=== PATIENT | female | born 1935 | race Caucasian/White ===

== ENCOUNTER 2022-05-26 07:44 | Emergency (ER) | payer MEDICARE, SELFPAY ==
[2022-05-26 07:51] VITALS: BP 185/88; PULSE 100; RESP 16; TEMP 36.7; O2SAT 99; BMI 16.9
--- NOTE | 2022-05-26 08:06 | ED.BACK ---
HPI - Back Pain/Injury General Chief Complaint: Back Pain/Injury Stated Complaint: back pain Time Seen by Provider: 05/26/22 08:01 Source: patient Mode of arrival: ambulatory Limitations: no limitations History of Present Illness HPI Narrative: 86 yo female Presents to the ER for evaluation of low back pain that started 4 days ago. She states she cannot recall what she was doing when it started, she woke up with the pain. It is located mostly in her left lower back that radiated across to the right when she moves around. It is worse with movement. It is improved with lying still. She denies any radiation of the pain aside from across the lower back. She denies any bowel or bladder incontinence. She denies any focal neural deficits or weakness in her legs. No abdominal pain. She took Tylenol at 07:00 today and has significant improvement in the pain. MD elicited complaint: back pain Onset (ago): day(s) (4) Timing: constant Severity: moderate Pain scale (0-10): 7 Similar Symptoms Previously: No Quality: aching and spasming Location: right lower back and left lower back Radiation: none Exacerbating factors: movement Relieving factors: immobilization and supine Context: unknown Associated symptoms: denies other symptoms Treatments prior to arrival: acetaminophen Work related injury: No Related Data Previous Rx's Medication Instructions Recorded cyclobenzaprine 5 mg tablet 5 mg PO BID PRN muscle spasm #6 05/26/22 tabs naproxen 250 mg tablet 250 mg PO BID PRN pain #6 tabs 05/26/22 Allergies Allergy/AdvReac Type Severity Reaction Status Date / Time proline [Proline] Allergy Mild REJECTION Unverified 03/31/20 15:39 OF SUTURE amitriptyline [Amitriptyline] AdvReac Mild LETHARGY Unverified 03/31/20 15:39 naproxen [Naproxen] AdvReac Mild ABDOMINAL Unverified 03/31/20 15:39 PAIN trazodone [Trazodone] AdvReac Mild LETHARGY Unverified 03/31/20 15:39 Review of Systems Review of Systems: Constitutional: No Fever, No Chills ENT/Mouth: No sore throat, No Rhinorrhea Eyes: No Eye Pain, No Swelling, No Redness Cardiovascular: No Chest Pain, No SOB Gastrointestinal: No Nausea, No Vomiting, No Diarrhea, No abdominal Pain Genitourinary: No Dysuria, No Urinary Frequency, No Hematuria, No incontinence Musculoskeletal: No joint pain, + Myalgias Skin: No Skin Lesions, No rash Neuro: No Weakness, No Numbness Heme/Lymph: No Bruising, No Lymphadenopathy PMFSH Social History Social History Advance Directives: Yes Advance Directives Information Provided: No Advance Directives on File: No Physical Exam Vital Signs: Vital Signs: Last Vital Signs Temp 98.1 F 05/26/22 07:51 Pulse 100 05/26/22 07:51 Resp 16 05/26/22 07:51 BP 185/88 H 05/26/22 07:51 Pulse Ox 99 05/26/22 07:51 O2 Del Method 05/26/22 07:51 BMI result Body Mass Index 16.9 Appearance: Alert. Oriented X3. No acute distress. HEENT: normal inspection CVS: Normal heart rate and rhythm. Pulses normal. Respiratory: No respiratory distress. Skin: Skin warm and dry. Normal skin color. Normal skin turgor. No rashes. Back: normal inspection, tenderness of the soft tissues on the left > right of the upper lumbar area, no midline tenderness. Extremities: normal inspection and ROM. Neuro: Oriented X 3. No motor deficit. No sensory deficit. Slow but steady gait Course Course Course Narrative: 86 yo female presenting with low back pain, nontraumatic x4 days, worse with movement and palpation. No red flag symptoms of LBP. Clinical presentation and examination are c/w muscle pain, with palpable spasm on exam. Will start very low dose PRN flexeril, short course of naproxyn and continue ATC tylenol. Plan d/w patient who is in agreement. She was encouraged to f/u with her PCP. Discharge Plan Discharge Clinical Impression: Strain of lumbar region Patient Disposition: Home, Self-Care Instructions: Low Back Strain (ED), Lower Back Exercises (ED) Additional Instructions: No bending, lifting or twisting. Use ice several times per day for 20 minutes at a time for the next 48 hours and then change to heat. Take medications as prescribed to help with pain and discomfort. Recommend over the counter topical pain patches, they can be found at any pharmacy. Follow up with your Primary Care Doctor this week. If your pain worsens, if you develop new numbness, tingling, weakness, loss of function or incontinence call 911 or come back to the ER right away for evaluation. Prescriptions: New cyclobenzaprine 5 mg tablet 5 mg PO BID PRN (Reason: muscle spasm) Qty: 6 0RF naproxen 250 mg tablet 250 mg PO BID PRN (Reason: pain) Qty: 6 0RF
[2022-05-26 09:19] VITALS: BP 163/75; PULSE 83; RESP 16; TEMP 36.7; O2SAT 97
[2022-05-26] MEDS: Lidocaine 4 % Patch ADH..PATCH 1 PATCH TRANSDERMA (09:29)
[2022-05-26] MEDS: Cyclobenzaprine HCl 5 MG TABLET PO (09:31)
[2022-05-26] MEDS: NaPROXEN 250 MG TABLET PO (09:31)
== END 2022-05-26 09:38 | disposition home or self-care (01) ==
PROVIDERS: Emergency Provider Emergency Medicine; PCP Internal Medicine
DX: S39.012A Strain of muscle, fascia and tendon of lower back, initial encounter (principal); X58.XXXA Exposure to other specified factors, initial encounter; Y93.9 Activity, unspecified; Y92.9 Unspecified place or not applicable; Y99.9 Unspecified external cause status
CPT/HCPCS: 99283

== ENCOUNTER 2022-06-02 09:58 | Inpatient (IN) | payer MEDICARE, SELFPAY ==
--- NOTE | ~2022-06-02 | CT_ITS ---
EXAMINATION: CT ABDOMEN AND PELVIS WITH CONTRAST CLINICAL INFORMATION: Abdominal pain. History of lymphoma. COMPARISON: None TECHNIQUE: Multidetector volumetric images were obtained from the superior aspect of the liver through the pubic symphysis following administration 85 mL of Omnipaque 350 intravenous contrast. Sagittal and coronal reformatted images were obtained on the technologist's workstation. Oral contrast: No This CT examination was performed using dose optimization techniques as appropriate, variously including the following: *Automated exposure control *Adjustment of mA and/or kV according to patient size (this includes techniques or standardized protocols for targeted exams where dose is matched to indication/reason for exam; i.e. extremities or head) *Use of iterative reconstruction technique DLP: 343 mGy-cm FINDINGS: LUNG BASES: Trace dependent left pleural effusion LIVER, GALLBLADDER, AND BILIARY TREE: There is intrahepatic and extrahepatic bile duct dilatation. The CBD at the torie hepatis measures 1.2 cm. The distal CBD at the pancreatic head measures 0.8 cm. No calcified stone seen in the bile ducts. There is distention of the gallbladder with edema of the wall. There is a gallstone at the neck of the gallbladder which is densely calcified measuring 1.6 cm. No focal liver lesion. PANCREAS: The pancreatic duct is dilated to a diameter of 3 mm. There is a mass at the body of the pancreas which is heterogeneous in density measuring 2.2 cm AP by about 4 cm in length. Image 167/671 series 4. This is suspicious for neoplasm. The tail of the pancreas is atrophic. The dilatation of the bile duct and the pancreatic duct are both distal to the mass at the body of the pancreas. Stricture at the sphincter of Oddi is therefore not excluded. The mass at the body of the pancreas lies at the anterior margin of the pancreas and does abut against the antrum of stomach where there is edema in the wall. Sagittal image 61/107. This raises question of invasion of the gastric wall by the pancreatic mass. Sagittal image 61/107 series 6. SPLEEN: Unremarkable ADRENAL GLANDS: Unremarkable KIDNEYS AND URETERS: The kidneys are normal in size, shape, and attenuation. No hydronephrosis, hydroureter, or calculi seen. No perinephric stranding. There is an exophytic cyst at the upper pole of the right kidney. Density measurement 20 Hounsfield units. 1.9 cm in length. No followup imaging is recommended for simple renal cyst. BLADDER: Unremarkable GASTROINTESTINAL TRACT: There are numerous diverticula of the colon. Diverticulosis is marked at the sigmoid colon. There is no diverticulitis. There is no bowel wall thickening /edema. There is no bowel obstruction. There is a large volume of stool in the colon. The appendix is normal . The small bowel loops are unremarkable. There is mild thickening of the gastric antrum. This could be due to underdistention. As stated above the pancreatic mass and the gastric antrum are in contact with loss of fat plane. There is no abnormal dilatation though of the stomach. No evidence for gastric obstruction. No evidence of inflammation. There is no hiatal hernia. ABDOMINAL WALL: No significant hernia is appreciated. LYMPH NODES: Normal VASCULAR: Vascular calcifications throughout the abdomen and pelvis. There is no aneurysm. There is edema in the right groin surrounding the right femoral artery. Correlate with history. No drainable fluid collection or evidence of contrast extravasation. No evidence for thrombus of the femoral vein or intrapelvic veins. There is normal enhancement of the portal vein and the splenic vein without evidence of thrombosis. Normal enhancement of the celiac axis and the SMA with preservation of fat planes around these vessels. No evidence of invasion. PELVIC VISCERA: Uterus is atrophic. No adnexal abnormalities. OSSEOUS STRUCTURES: Multilevel degenerative spondylosis of the spine. There is compression of the superior endplate of the T11 vertebrae which appears acute. No retropulsed fragments. No focal bone destruction to suggest metastatic change. CT/CT abdomen pelvis w IV con IMPRESSION: 1. Mass at the body of the pancreas suspicious for neoplasm. The mass lies at the anterior margin of the pancreas and does abut against the antrum of the stomach where there is edema in the wall. This raises question of invasion of the gastric wall by the pancreatic mass. 2. Cholelithiasis. There is distention of the gallbladder with edema of the wall. No calcified stone seen in the bile ducts. There is dilatation of the pancreatic duct and intrahepatic bile ducts. Stricture at the Sphincter of Oddi is not excluded. 3. Edema in the right groin surrounding the right femoral artery. Correlate with history. No drainable fluid collection or evidence of contrast extravasation. 4. Compression fracture of the superior endplate of the T11 vertebrae which appears acute. No focal bone destruction to suggest metastatic change. 5. Diverticulosis of colon. No acute abnormality of the bowel. 6. Trace dependent left pleural effusion. Fleischner guidelines were followed. This result was discussed with Linda Larsen NP on 06/02/2022, 5:55 PM and it was ascertained that the content and urgency of the report was understood at the time of direct communication.
--- NOTE | ~2022-06-02 | MR_ITS ---
EXAMINATION: MR ABDOMEN WITHOUT AND WITH CONTRAST CLINICAL INFORMATION: Follow up abnormal pancreas. COMPARISON: Previous CT of the abdomen and pelvis 06/02/2022. TECHNIQUE: MR abdomen was performed without and with use of 4 mL intravenous Gadavist gadolinium contrast. Postcontrast images are performed in multiphase dynamic sequences. Imaging was performed in 3 planes. MRCP sequences were also performed. FINDINGS: LUNG BASES: The visualized lung bases are clear. There are small bilateral pleural effusions. LIVER, GALLBLADDER, AND BILIARY TREE: The liver is normal in size, smooth in contour, and normal in signal. No focal hepatic lesion. There is a large gallstone in the gallbladder. There is mild gallbladder wall thickening and question edema in the fundus of the gallbladder. Gallbladder is upper normal in size. There is no intrahepatic biliary duct dilatation. There is mild common bile duct dilatation, common bile duct measuring 1 cm. No common bile duct stone. PANCREAS: There is a multiloculated cystic lesion in the head of the pancreas. This measures 2.4 x 3.8 cm in AP and transverse dimension. This demonstrates areas of septal and wall enhancement. This abuts the main pancreatic duct. The main pancreatic duct does not appear dilated. SPLEEN: Normal. ADRENAL GLANDS: Normal. KIDNEYS AND URETERS: 2 cm cyst in the upper pole of the right kidney. The kidneys are otherwise normal. GASTROINTESTINAL TRACT: Diverticulosis of the colon and constipation. No bowel obstruction. No ascites or fluid collection. ABDOMINAL WALL: No significant hernia is appreciated. LYMPH NODES: No lymphadenopathy. VASCULAR: Unremarkable. OSSEOUS STRUCTURES: Recent-appearing T11 vertebral body compression fracture. MR/MR abdomen wo/w con IMPRESSION: Multiloculated cystic lesion in the head of the pancreas with areas of septal and wall enhancement. 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 Large gallstone in the gallbladder. Mild gallbladder wall thickening and question edema in the fundus of the gallbladder. Mild common bile duct dilatation. No common bile duct stone. Constipation and diverticulosis of the colon. Right renal cyst. Recent-appearing T11 vertebral body compression fracture.
[2022-06-02 10:02] VITALS: BP 170/74; BP 182/81; PULSE 93; RESP 16; TEMP 36.5; O2SAT 97; BMI 16.9
--- NOTE | 2022-06-02 10:18 | ED.BACK ---
HPI - Back Pain/Injury General Chief Complaint: Back Pain/Injury Stated Complaint: BACK SPASMS,SEEN FOR SAME RECENTLY PER EMS Time Seen by Provider: 06/02/22 10:03 Source: patient Mode of arrival: EMS Limitations: no limitations History of Present Illness HPI Narrative: Patient is an 86-year-old female who presents emergency department for evaluation of lower back pain. States she was seen here recently for similar pain, was given prescription for pain medication, with no significant improvement. She states that the pain began just over 2 weeks ago. Onset of pain was noticed while she was sitting down. Pain is predominantly to the left lower back but she does feel it towards the midline as well as the right side of her back at times. Pain is now also radiating to the left lower quadrant of her abdomen. Denies radiation to her legs particularly, but she does report that sometimes her knees feel weak is so they are going to buckle. Also reporting constipation, denies bowel movement over the past 4 days, typically moves her bowels every other day. She has also had a decreased appetite. She denies any fevers, chills, recent unintentional weight loss, night sweats, chest pain, palpitations, shortness of breath, difficulty breathing, nausea, vomiting, dysuria, urinary frequency/urgency/hesitancy, diarrhea, bloody or dark stools. Denies any precipitating injury or fall. Denies any bladder bowel dysfunction, no numbness or tingling to the perineum or bilateral legs. She does report a history of non-Hodgkin's lymphoma approximately 11 years ago requiring chemotherapy. MD elicited complaint: back pain Related Data Previous Rx's Medication Instructions Recorded cyclobenzaprine 5 mg tablet 5 mg PO BID PRN muscle spasm #6 05/26/22 tabs naproxen 250 mg tablet 250 mg PO BID PRN pain #6 tabs 05/26/22 Allergies Allergy/AdvReac Type Severity Reaction Status Date / Time proline [Proline] Allergy Mild REJECTION Unverified 03/31/20 15:39 OF SUTURE amitriptyline [Amitriptyline] AdvReac Mild LETHARGY Unverified 03/31/20 15:39 naproxen [Naproxen] AdvReac Mild ABDOMINAL Unverified 03/31/20 15:39 PAIN trazodone [Trazodone] AdvReac Mild LETHARGY Unverified 03/31/20 15:39 Review of Systems Review of Systems: Constitutional: No weight loss, fever, chills, weakness or fatigue. HEENT: No visual loss, blurred vision, double vision. No hearing loss, sneezing, congestion, runny nose or sore throat. Skin: No rash or itching. Cardiovascular: No chest pain, chest pressure or chest discomfort. No palpitations or pedal edema. Respiratory: No shortness of breath, cough or sputum production. Gastrointestinal: No anorexia, nausea, vomiting or diarrhea. No abdominal pain or blood in stool. Genitourinary: No burning micturition. No urinary frequency or incontinence. Neurologic: No headache, dizziness, syncope, unilateral weakness, ataxia, numbness or tingling in the extremities. No change in bowel or bladder control. Musculoskeletal: + Back pain as noted in HPI. No joint pain or stiffness. Hematologic: No bleeding or bruising. Lymphatics: No enlarged lymph nodes. Psychiatric:No depression or anxiety. Endocrine: No reports of sweating. No cold or heat intolerance. No polyuria or polydipsia. Yes all other systems are reviewed and are negative PMFSH Past Medical History Attestation statement: The following information was validated with the patient. Source: old records reviewed Social History Social History Alcohol intake: never Smoked in Last 30 Days: No Use of substances other than those prescribed or required for medical reasons: No Advance Directives: No Advance Directives Information Provided: No Physical Exam Vital Signs: Vital Signs: Last Vital Signs Temp 98.7 F 06/02/22 14:13 Pulse 106 H 06/02/22 16:46 Resp 16 06/02/22 16:46 BP 135/63 06/02/22 16:46 Pulse Ox 93 06/02/22 16:46 O2 Del Method 06/02/22 16:46 BMI result Body Mass Index 16.9 Vital signs have been reviewed as normal and appeared to be correct. Blood pressure elevated.? Heart rate normal.? Respiration rate normal. Temperature normal.? Oxygen saturation normal. Appearance: Alert.?Oriented to person, place and time. No acute distress.?Normal affect. Eyes: Pupils equal, round and reactive to light.? ENT: Pharynx normal.?? Neck: Normal inspection.? Neck supple.?? CVS: Heart sounds normal. Normal heart rate and rhythm.? Pulses normal; bilateral radial pulses 2+, bilateral posterior tibial/dorsalis pedis pulses 2+.? Respiratory: No respiratory distress.? Lung sounds clear to auscultation bilaterally?? Abdomen: Soft with diffuse lower abdominal tenderness to even mild palpation. Upper abdomen with mild tenderness. Normoactive bowel sounds. No pulsatile mass.?? Skin: Skin warm and dry.? Normal skin color.? Normal skin turgor.?? Extremities: No lower extremity edema.? No calf ttp? Back: + significant paraspinal muscular tenderness from lumbar region to coccyx. Positive left CVA tenderness. Full ROM intact in bilateral lower extremities. No rashes, lesions, areas of induration or fluctuance, or signs of infection noted. Neuro: Moves all extremities spontaneously. 5/5 strength in hip extension/flexion, abduction, adduction. Sensation to light touch intact bilaterally. No ataxia, gait normal and steady.. No focal neuro deficits. Course Course Course Narrative: Patient is an 86-year-old female with a past medical history of hypertension for which she is no longer prescribed antihypertensives, and non-Hodgkin's lymphoma status post treatment with chemotherapy, presented to emergency department for evaluation of lower back pain. She was seen in the emergency department approximately 1 week ago 05/26/2022 was diagnosed with strain of lumbar region in given new prescription for cyclobenzaprine and naproxen and advised to follow-up with her primary care provider, with whom she has an appointment in the next 2 days. At the time of examination she has significant tenderness to the left flank and left paraspinal region, significant tenderness with even mild palpation diffusely across the lower abdomen. Will obtain CBC to evaluate for leukocytosis/ anemia, CMP and lipase to evaluate for abnormal electrolytes /abnormal renal function/ abnormal hepatic/biliary function, CT of the abdomen and pelvis to evaluate for diverticulitis, bowel obstruction, masses, nephrolithiasis, hydronephrosis, and will obtain Urinalysis. Reevaluation(s) Reevaluation #1: CBC reveals no leukocytosis, there is however a left shift, no anemia. Currently no source of infection identified, does not meet sirs criteria. Lactic acid is normal. Troponin 7.2, EKG revealing sinus rhythm without acute ischemic findings. Advised by nursing staff that they are having difficult time obtaining chemistries. Labs are hemolyzing. Multiple people have tried to obtain labs without success. Will contact phlebotomy, and personally attempt obtaining labs. At this time, she is reporting pain to be 2/10, has not made any significant movements. Time: 14:45 Reevaluation #2: Spoke with radiology regarding CT results; acute compression fracture of T11 vertebrae without focal bone destruction. Diverticulosis without diverticulitis no bowel obstruction, trace left pleural effusion, pancreas body mass suspicious for neoplasm, abutting antrum of the stomach where there is also edema to the wall raising suspicion for invasion, cholelithiasis with distention and edema of the gallbladder wall, dilation of the pancreatic duct and intrahepatic bile duct. These findings were discussed at length with patient and her son who is currently at bedside. CT findings concerning for acute cholecystitis, in conjunction with abdominal tenderness, mild tachycardia with heart rate 106, will treat with IV ceftriaxone. Consult surgery salon sales consultant regarding cholecystitis, would not be candidate for lap cholecystectomy at this time, likely will require endoscopic ultrasound and biopsy pancreatic mass. Georgia Jordan spoke with GI Dr. Morley, will advises that endoscopic ultrasound be preferably method for pancreatic biopsy which would likely need to be performed at [facility]. Time: 17:57 Reevaluation #3: Given stool burden, reported constipation lower abdominal pain, trial MiraLax for constipation. Spoke with hospitalist, Dr. Pratt, who accepts patient for admission to medicine service for acute cholesystitis, constipation, weakness, pancreatic mass, T11 compression fracture, and L flank/ back pain Time: 19:27 Medications Administered Discontinued Medications Generic Name Dose Route Start Last Admin Trade Name Freq PRN Reason Stop Dose Admin Sodium Chloride 500 mls @ 999 mls/hr 06/02/22 10:45 06/02/22 15:22 Ns IV 06/02/22 11:15 Infused .Q31M ERIC Infusion Ceftriaxone Sodium 1 gm/ 50 mls @ 100 mls/hr 06/02/22 18:34 06/02/22 18:57 Sodium Chloride IV 06/02/22 19:03 100 mls/hr ONCE ONE Administration Iohexol 100 ml 06/02/22 16:47 06/02/22 16:47 Iohexol 350 Mg/Ml 100 Ml Infus..Btl IV 06/02/22 16:48 85 ml ONCE ONE Administration Morphine Sulfate 4 mg 06/02/22 10:34 06/02/22 12:36 Morphine Sulfate 4 Mg/Ml Cartridge IVPUSH 06/02/22 10:35 4 mg ONCE ONE Administration Protocol Ondansetron HCl 4 mg 06/02/22 10:34 06/02/22 12:36 Ondansetron Hcl 4 Mg/2 Ml Vial IVPUSH 06/02/22 10:35 4 mg ONCE ONE Administration MDM - Back Pain/Injury Medical Records Attestation: I reviewed the patient's medical records. Lab Data Attestation: I reviewed the patient's lab results. Result diagrams: 06/02/22 12:16 06/02/22 15:17 Labs: Lab Results 06/02/22 06/02/22 06/02/22 Range/Units 11:26 12:16 12:16 WBC 8.6 (4.8-10.8) X10*3/uL RBC 4.43 (4.20-5.50) X10*6/uL Hgb 13.6 (12.0-16.0) g/dl Hct 41.6 (37.0-47.0) % MCV 93.9 (80.0-98.0) fL MCH 30.7 (27.0-33.0) pg MCHC 32.7 (31.0-35.0) g/dl RDW 13.6 (11.0-16.0) % Plt Count 203 (160-400) X10*3/uL MPV 9.5 (9.4-12.3) fL Immature Gran % (Auto) 0.5 H (0.0-0.4) % Neut % (Auto) 77.8 H (45-73) % Lymph % (Auto) 12.7 L (20-40) % Carter % (Auto) 7.7 (2-11) % Eos % (Auto) 0.8 (0-4) % Baso % (Auto) 0.5 (0-2) % Lymph # (Auto) 1.1 L (1.2-4.9) X10*3/uL Carter # (Auto) 0.7 (0.1-1.2) X10*3/uL Eos # (Auto) 0.1 (0.0-0.4) X10*3/uL Baso # (Auto) 0.0 (0.0-0.2) X10*3/uL Abs Immat Gran (auto) 0.04 H (0.00-0.03) X10*3/uL Absolute Neuts (auto) 6.7 (2.0-8.3) x10*3/uL Absolute Nucleated RBC 0.000 (0.0-0.012) X10*3/uL Nucleated RBC % (auto) 0.0 (0.0-0.2) /100WBC Sodium (135-145) mmol/L Potassium (3.3-5.1) mmol/L Chloride (96-108) mmol/L Carbon Dioxide (22-29) mmol/L Anion Gap (12-20) BUN (9-16) mg/dL Creatinine (0.5-1.4) mg/dL Estim Creat Clear Calc Estimated GFR Random Glucose (60-115) mg/dL Lactic Acid 1.0 (0.5-2.0) mmol/L Calcium (8.4-10.2) mg/dL Magnesium (1.6-2.6) mg/dL Total Bilirubin (0.0-1.0) mg/dL AST (5-31) U/L ALT (0-31) U/L Alkaline Phosphatase (39-117) U/L Troponin I High Sens (<3.5-17.0) ng/L Total Protein (6.5-8.0) g/dL Albumin (3.5-5.0) g/dL Lipase (8-78) U/L Urine Color Urine Appearance Urine pH (5.0-9.0) Ur Specific Sisters (1.005-1.025) Urine Protein (Neg-Trace) mg/dL Urine Glucose (UA) (Negative) mg/dL Urine Ketones (Negative) mg/dL Urine Blood (Negative) Urine Nitrite (Negative) Ur Leukocyte Esterase (Negative) Urine RBC (0-2) /HPF Urine WBC (0-5) /HPF Ur Squamous Epith Cells (0-2) /HPF Urine Bacteria (None Seen) Hyaline Casts (0-2) /LPF COVID-19 (TOMER) Negative (Negative) COVID-19 Clin Com See Note 06/02/22 06/02/22 06/02/22 Range/Units 12:16 15:17 16:27 WBC (4.8-10.8) X10*3/uL RBC (4.20-5.50) X10*6/uL Hgb (12.0-16.0) g/dl Hct (37.0-47.0) % MCV (80.0-98.0) fL MCH (27.0-33.0) pg MCHC (31.0-35.0) g/dl RDW (11.0-16.0) % Plt Count (160-400) X10*3/uL MPV (9.4-12.3) fL Immature Gran % (Auto) (0.0-0.4) % Neut % (Auto) (45-73) % Lymph % (Auto) (20-40) % Carter % (Auto) (2-11) % Eos % (Auto) (0-4) % Baso % (Auto) (0-2) % Lymph # (Auto) (1.2-4.9) X10*3/uL Carter # (Auto) (0.1-1.2) X10*3/uL Eos # (Auto) (0.0-0.4) X10*3/uL Baso # (Auto) (0.0-0.2) X10*3/uL Abs Immat Gran (auto) (0.00-0.03) X10*3/uL Absolute Neuts (auto) (2.0-8.3) x10*3/uL Absolute Nucleated RBC (0.0-0.012) X10*3/uL Nucleated RBC % (auto) (0.0-0.2) /100WBC Sodium 142 (135-145) mmol/L Potassium 3.9 (3.3-5.1) mmol/L Chloride 108 (96-108) mmol/L Carbon Dioxide 23 (22-29) mmol/L Anion Gap 15 (12-20) BUN 11 (9-16) mg/dL Creatinine 0.61 (0.5-1.4) mg/dL Estim Creat Clear Calc 43.4 Estimated GFR > 60 Random Glucose 74 (60-115) mg/dL Lactic Acid (0.5-2.0) mmol/L Calcium 8.9 (8.4-10.2) mg/dL Magnesium 1.6 (1.6-2.6) mg/dL Total Bilirubin 0.8 (0.0-1.0) mg/dL AST 27 (5-31) U/L ALT 19 (0-31) U/L Alkaline Phosphatase 67 (39-117) U/L Troponin I High Sens 7.2 (<3.5-17.0) ng/L Total Protein 6.0 L (6.5-8.0) g/dL Albumin 3.6 (3.5-5.0) g/dL Lipase 11 (8-78) U/L Urine Color Yellow Urine Appearance Clear Urine pH 5.0 (5.0-9.0) Ur Specific Sisters 1.015 (1.005-1.025) Urine Protein Negative (Neg-Trace) mg/dL Urine Glucose (UA) Negative (Negative) mg/dL Urine Ketones 15 (Negative) mg/dL Urine Blood Small (1+) H (Negative) Urine Nitrite Negative (Negative) Ur Leukocyte Esterase Moderate (2+) H (Negative) Urine RBC 3-5 H (0-2) /HPF Urine WBC 6-10 (0-5) /HPF Ur Squamous Epith Cells 3-5 (0-2) /HPF Urine Bacteria None Seen (None Seen) Hyaline Casts 0-2 (0-2) /LPF COVID-19 (TOMER) (Negative) COVID-19 Clin Com ECG Data Attestation: I personally reviewed and interpreted this ECG as follows: ECG interpretation date: 06/02/22 Interpretation: Rate: 92 Rhythm:? Sinus rhythm with PVCs [place]:? Normal Normal P waves.? Normal LISA.?? Normal QRS complex.?? ST T wave :??No ST elevation, no ST depression, no T-wave inversion qTC: 455 The study has been interpreted contemporaneously by me. Discharge Plan Discharge Clinical Impression: Acute cholecystitis, Pancreatic mass, Constipation, Compression fracture of thoracic vertebra Patient Disposition: Admitted As Inpatient Prescriptions: No Action cyclobenzaprine 5 mg tablet 5 mg PO BID PRN (Reason: muscle spasm) Qty: 6 0RF naproxen 250 mg tablet 250 mg PO BID PRN (Reason: pain) Qty: 6 0RF
--- NOTE | 2022-06-02 10:42 | ECG_ITS ---
Test Reason : ABDOMINAL PAIN Blood Pressure : / mmHG Vent. Rate : 092 BPM Atrial Rate : 092 BPM P-R Int : 130 ms QRS Dur : 086 ms QT Int : 368 ms P-R-T Axes : 065 030 033 degrees QTc Int : 455 ms Sinus rhythm with occasional Premature ventricular complexes Nonspecific ST abnormality Abnormal ECG No previous ECGs available Referred By: Linda Larsen Electronically Signed By:PER LOONEY MD
[2022-06-02 11:46] LABS: COVID-19 Test Negative (Negative); IDNOW Serial# 16C4AD1C
[2022-06-02 12:27] LABS: MANUAL DIFF FLAG NO
[2022-06-02 12:33] LABS: Basophils Percent Auto 0.5 % (0-2); Eosinophils Absolute Auto 0.1 X10*3/uL (0.0-0.4); Eosinophils Percent Auto 0.8 % (0-4); Hematocrit 41.6 % (37.0-47.0); Hemoglobin 13.6 g/dl (12.0-16.0); Imm Gran Abs Auto 0.04 X10*3/uL (0.00-0.03); Imm Gran Pct Auto 0.5 % (0.0-0.4); Lymphocytes Absolute Auto 1.1 X10*3/uL (1.2-4.9); Lymphocytes Percent Auto 12.7 % (20-40); Mean Corpuscular HGB Conc 32.7 g/dl (31.0-35.0); Mean Corpuscular Hemoglobin 30.7 pg (27.0-33.0); Mean Corpuscular Volume 93.9 fL (80.0-98.0); Mean Platelet Volume 9.5 fL (9.4-12.3); Monocytes Absolute Auto 0.7 X10*3/uL (0.1-1.2); Monocytes Percent Auto 7.7 % (2-11); Neutrophils Absolute Auto 6.7 x10*3/uL (2.0-8.3); Neutrophils Percent Auto 77.8 % (45-73); Platelet Count 203 X10*3/uL (160-400); Red Blood Count 4.43 X10*6/uL (4.20-5.50); Red Cell Distribution Width 13.6 % (11.0-16.0); White Blood Count 8.6 X10*3/uL (4.8-10.8)
[2022-06-02 12:36] VITALS: RESP 21
[2022-06-02] MEDS: Morphine Sulfate 4 MG/ML CARTRIDGE IVPUSH (12:36)
[2022-06-02] MEDS: ondansetron HCL 4 MG/2 ML VIAL IVPUSH (12:36)
[2022-06-02] MEDS: 0.9 % Sodium Chloride 500 ML 999 ML IV (12:37)
[2022-06-02 12:59] LABS: Troponin-I High Sensitivity 7.2 ng/L (<3.5-17.0)
[2022-06-02 13:08] VITALS: BP 157/71; PULSE 91; RESP 12; TEMP 36.7; O2SAT 98
--- NOTE | 2022-06-02 13:59 | PC.NURSE ---
Addendum entered by Daniel Cyr 06/02/22 15:15: Multiple staff attempted to draw patient. Phlebotomy called and paged overhead. Phlebotomy did not come to draw patient. Provider made aware. Original Note: Patient difficult blood draw. Phlebotomy called
[2022-06-02 14:13] VITALS: BP 153/70; PULSE 92; RESP 21; TEMP 37.1; O2SAT 99
[2022-06-02 16:06] LABS: Alanine Aminotransferase 19 U/L (0-31); Albumin Level 3.6 g/dL (3.5-5.0); Alkaline Phosphatase 67 U/L (39-117); Anion Gap 15 (12-20); Aspartate Amino Transferase 27 U/L (5-31); Bilirubin Total 0.8 mg/dL (0.0-1.0); Blood Urea Nitrogen 11 mg/dL (9-16); Calcium 8.9 mg/dL (8.4-10.2); Carbon Dioxide 23 mmol/L (22-29); Chloride 108 mmol/L (96-108); Creatinine Clr Calc Pharmacy 43.4; Estimated Glomerular Filt Rate > 60; Glucose Random 74 mg/dL (60-115); Lipase 11 U/L (8-78); Magnesium 1.6 mg/dL (1.6-2.6); Potassium 3.9 mmol/L (3.3-5.1); Sodium 142 mmol/L (135-145)
[2022-06-02 16:33] LABS: Appearance Urine Clear; Color Urine Yellow; Glucose Urine UA Negative (Negative); Leukocyte Esterase Urine Moderate (2+) (Negative); Nitrite Urine Negative (Negative); Specific Gravity - Urine 1.015 (1.005-1.025); UMIC TRIGGER UACC YES; Urine Blood Small (1+) (Negative); Urine Ketones 15 mg/dL (Negative); Urine Protein Negative (Neg-Trace)
[2022-06-02 16:44] LABS: Bacteria Urine None Seen (None Seen); Hyaline Casts Urine 0-2 /LPF (0-2); UACC Culture Trigger YES
[2022-06-02 16:46] VITALS: BP 135/63; PULSE 106; RESP 16; O2SAT 93
[2022-06-02] MEDS: iohexoL 350 MG/ML 100 ML INFUS..BTL IV (16:47)
--- NOTE | 2022-06-02 17:20 | PC.NURSE ---
Provider aware of HR
[2022-06-02] MEDS: cefTRIAXone sodium 1 GM in 0.9 % Sodium Chloride 50 ML IV (18:57)
[2022-06-02 20:48] VITALS: BP 142/72; PULSE 109; RESP 15; TEMP 36.9; O2SAT 96
[2022-06-02] MEDS: polyethylene glycoL 3350 17 GM POWD.PACK PO (21:22)
--- NOTE | 2022-06-02 21:24 | PC.NURSE ---
pt a&ox3, vss, pt denies any pain if lying on her back, increased pain w movement on sides. medicated per provider order, pt pending admission orders/bed assignment.
--- NOTE | 2022-06-02 21:26 | PM.IMHP ---
History of Present Illness Date of Service: 06/02/22 Chief Complaint: back pain This is an 86-year-old female with past medical history of hypertension who took herself off of her antihypertensives sometime ago, not compliant with physician visits, last seen primary care provider many years ago presents to the hospital with complaints of back pain. Of note patient was seen in the ED 2 weeks ago for same back pain. Patient reports that the pain is in the lower back, on the left, then radiates to the right and and cyst in the right upper quadrant. Patient reports that the pain is been going on for 2 weeks, she was given muscle relaxant, a Tylenol, as well as took ibuprofen with no relief of her pain. Her pain became 10/10 therefore decided to come back to the hospital. She reports that she initially did not feel significant pain in the right upper quadrant but when she was exam bed in the EMS, she then realize she has right upper quadrant pain. She denies any recent weight loss, reports no nausea vomiting, denies any diarrhea but has constipation, no urinary symptoms, no lower extremity edema, Labs are significant for positive UA otherwise unremarkable Abdomen pelvic CT shows mass at the body of the pancreas suspicious for neoplasm, cholelithiasis with distention of the gallbladder with edema of the wall concerning for acute cholecystitis, There is also compression fracture of T11 vertebral which appears acute Case was discussed with General surgery, wants patient to be evaluated for pancreatic neoplasm. Will start patient on IV antibiotics with consult for GI Review of Systems Review of Systems: Yes all other systems are reviewed and are negative [facility] Medical History (Updated 06/03/22 @ 07:03 by Dahiana Pratt MD) Hypertension Family History (Updated 06/03/22 @ 07:04 by Dahiana Pratt MD) Other No history of cancer Surgical History (Updated 06/03/22 @ 07:05 by Dahiana Pratt MD) No pertinent past surgical history Social History (Updated 06/03/22 @ 07:05 by Dahiana Pratt MD) Alcohol intake: never Patient Tobacco Use Status: Former Tobacco user Smoked in Last 30 Days: No Use of substances other than those prescribed or required for medical reasons: No Advance Directives: No Advance Directives Information Provided: No Meds Allergies Allergy/AdvReac Type Severity Reaction Status Date / Time proline [Proline] Allergy Mild REJECTION Verified 06/02/22 21:22 OF SUTURE amitriptyline [Amitriptyline] AdvReac Mild LETHARGY Verified 06/02/22 21:22 naproxen [Naproxen] AdvReac Mild ABDOMINAL Verified 06/02/22 21:22 PAIN trazodone [Trazodone] AdvReac Mild LETHARGY Verified 06/02/22 21:22 Active Medications: Current Medications Pharmacy Consult (Consult Rx Perform Med Rec) 1 each MISCELLANE ONCE PRN PRN Reason: Consult order Physical Exam Vital Signs and Narrative: Vital Signs: Last Vital Signs Temp 98.5 F 06/02/22 20:48 Pulse 109 H 06/02/22 20:48 Resp 15 06/02/22 20:48 BP 142/72 H 06/02/22 20:48 Pulse Ox 96 06/02/22 20:48 O2 Del Method 06/02/22 20:48 BMI result Body Mass Index 16.9 Const: General: cooperative and no acute distress Orientation/consciousness: patient oriented x3 Eyes: General: appearance normal, both eyes and all related structures Pupils: Equal, round and reactive pupils present Resp: Effort & Inspection: normal respiratory effort Auscultation: clear to auscultation bilaterally Cardio: Rate: regular rate Rhythm: regular rhythm GI: Other: RUQ tenderness, no rebound or guarding epigastric tenderness Palpation (GI): Soft to palpation Auscultation: normal bowel sounds Skin: General skin exam: no rashes or lesions noted Neuro: General: patient oriented x3 Cranial nerves: Yes Equal, round and reactive pupils present Cognition (Neuro): normal cognition Extrem: General: Yes normal to inspection and Yes no pedal edema Results Labs CBC and Chem 7: 06/02/22 12:16 06/02/22 15:17 Labs: Laboratory Results - last 24 hr 06/02/22 06/02/22 06/02/22 11:26 12:16 12:16 MCV 93.9 MCH 30.7 MCHC 32.7 RDW 13.6 Plt Count 203 MPV 9.5 Immature Gran % (Auto) 0.5 H Neut % (Auto) 77.8 H Lymph % (Auto) 12.7 L [place] % (Auto) 7.7 Eos % (Auto) 0.8 Baso % (Auto) 0.5 Lymph # (Auto) 1.1 L [place] # (Auto) 0.7 Eos # (Auto) 0.1 Baso # (Auto) 0.0 Abs Immat Gran (auto) 0.04 H Absolute Neuts (auto) 6.7 Absolute Nucleated RBC 0.000 Nucleated RBC % (auto) 0.0 Anion Gap Estim Creat Clear Calc Estimated GFR Random Glucose Lactic Acid 1.0 Calcium Magnesium Total Bilirubin AST ALT Alkaline Phosphatase Troponin I High Sens Total Protein Albumin Lipase Urine Color Urine Appearance Urine pH Ur Specific [place] Urine Protein Urine Glucose (UA) Urine Ketones Urine Blood Urine Nitrite Ur Leukocyte Esterase Urine RBC Urine WBC Ur Squamous Epith Cells Urine Bacteria Hyaline Casts COVID-19 (TOMER) Negative COVID-19 Clin Com See Note 06/02/22 06/02/22 06/02/22 12:16 15:17 16:27 MCV MCH MCHC RDW Plt Count MPV Immature Gran % (Auto) Neut % (Auto) Lymph % (Auto) [place] % (Auto) Eos % (Auto) Baso % (Auto) Lymph # (Auto) [place] # (Auto) Eos # (Auto) Baso # (Auto) Abs Immat Gran (auto) Absolute Neuts (auto) Absolute Nucleated RBC Nucleated RBC % (auto) Anion Gap 15 Estim Creat Clear Calc 43.4 Estimated GFR > 60 Random Glucose 74 Lactic Acid Calcium 8.9 Magnesium 1.6 Total Bilirubin 0.8 AST 27 ALT 19 Alkaline Phosphatase 67 Troponin I High Sens 7.2 Total Protein 6.0 L Albumin 3.6 Lipase 11 Urine Color Yellow Urine Appearance Clear Urine pH 5.0 Ur Specific [place] 1.015 Urine Protein Negative Urine Glucose (UA) Negative Urine Ketones 15 Urine Blood Small (1+) H Urine Nitrite Negative Ur Leukocyte Esterase Moderate (2+) H Urine RBC 3-5 H Urine WBC 6-10 Ur Squamous Epith Cells 3-5 Urine Bacteria None Seen Hyaline Casts 0-2 COVID-19 (TOMER) COVID-19 Clin Com Imaging Radiologist's Impressions: Impressions Abdomen/Pelvis CT 06/02/22 16:47 IMPRESSION: 1. Mass at the body of the pancreas suspicious for neoplasm. The mass lies at the anterior margin of the pancreas and does abut against the antrum of the stomach where there is edema in the wall. This raises question of invasion of the gastric wall by the pancreatic mass. 2. Cholelithiasis. There is distention of the gallbladder with edema of the wall. No calcified stone seen in the bile ducts. There is dilatation of the pancreatic duct and intrahepatic bile ducts. Stricture at the Sphincter of Oddi is not excluded. 3. Edema in the right groin surrounding the right femoral artery. Correlate with history. No drainable fluid collection or evidence of contrast extravasation. 4. Compression fracture of the superior endplate of the T11 vertebrae which appears acute. No focal bone destruction to suggest metastatic change. 5. Diverticulosis of colon. No acute abnormality of the bowel. 6. Trace dependent left pleural effusion. Fleischner guidelines were followed. This result was discussed with Linda Larsen ENGINEERING ILLUSTRATOR on 06/02/2022, 5:55 PM and it was ascertained that the content and urgency of the report was understood at the time of direct communication. Assessment and Plan (1) Acute cholecystitis: Status: Acute (2) Pancreatic mass: Status: Acute (3) Compression fracture of thoracic vertebra: Status: Acute Plan 86-year-old female with past medical history of hypertension presents to the hospital with complaints of back pain found to have acute cholecystitis as well as a pancreatic mass # acute cholecystitis - has right upper quadrant abdominal tenderness - likely obstructive due to pancreatic mass - Will start on IV abx as surgery does not feel pt to be a candidate for lap danika at this time - follow cultures # Pancreatic lesion - GI consulted for further evaluation of mass with possible endo US - keep NPO # HTN - pt took herself off her antihypertensive because she felt bp was normal - BP elevated - will consider reinstating antihypertensive if remains high DVT ppx: Heparin subq Indications acute cholecystitis with my of IV antibiotics patient will require minimal tonight inpatient hospitalist for further management Quality Stroke Does the patient have a stroke diagnosis?: No VTE Prior VTE?: No VTE Risk Level:: Medical - moderate - high VTE Device Contraindication: Treatment Not Indicated VTE Drug Contraindication: N/A - Med Ordered
[2022-06-02] MEDS: metroNIDAZOLE/NS 500 MG/100 ML PIGGYBACK 100 MG IV (23:17)
[2022-06-02] MEDS: Heparin Sodium,Porcine 5,000 UNIT/ML VIAL 5000 UNIT SUBCUT (23:18)
--- NOTE | 2022-06-02 23:23 | PC.NURSE ---
medicated per provider order, pt transferred to ED overflow by component technician.
[2022-06-03] VITALS (8 sets, daily range): BP systolic 117–152; BP diastolic 52–70; PULSE 93–101; RESP 12–18; TEMP 36.5–37.1; O2SAT 94–98; BMI 16.9
[2022-06-03] MEDS: 0.9 % Sodium Chloride Flush 3 ML SYRINGE IVFLUSH ×3 (00:31→19:44)
--- NOTE | 2022-06-03 04:32 | PC.NURSE ---
0400 rounding done patient ring for bedpan ,voided large amount of urine ,teresa care given bed pad change warm blanket given ,call banegas within reach .
[2022-06-03] MEDS: metroNIDAZOLE/NS 500 MG/100 ML PIGGYBACK 100 MG IV ×3 (05:26→22:24)
[2022-06-03 06:37] LABS: MANUAL DIFF FLAG NO
[2022-06-03 07:04] LABS: Anion Gap 24 (12-20); Blood Urea Nitrogen 16 mg/dL (9-16); Calcium 9.1 mg/dL (8.4-10.2); Carbon Dioxide 17 mmol/L (22-29); Chloride 106 mmol/L (96-108); Creatinine Clr Calc Pharmacy 37.8; Estimated Glomerular Filt Rate > 60; Glucose Random 57 mg/dL (60-115); Sodium 143 mmol/L (135-145)
[2022-06-03 07:07] LABS: Basophils Absolute Auto 0.1 X10*3/uL (0.0-0.2); Basophils Percent Auto 0.5 % (0-2); Eosinophils Percent Auto 0.4 % (0-4); Hematocrit 38.1 % (37.0-47.0); Hemoglobin 12.1 g/dl (12.0-16.0); Imm Gran Abs Auto 0.05 X10*3/uL (0.00-0.03); Imm Gran Pct Auto 0.5 % (0.0-0.4); Lymphocytes Absolute Auto 1.5 X10*3/uL (1.2-4.9); Mean Corpuscular HGB Conc 31.8 g/dl (31.0-35.0); Mean Corpuscular Volume 97.7 fL (80.0-98.0); Mean Platelet Volume 10.1 fL (9.4-12.3); Monocytes Absolute Auto 0.8 X10*3/uL (0.1-1.2); Monocytes Percent Auto 7.5 % (2-11); Neutrophils Absolute Auto 8.2 x10*3/uL (2.0-8.3); Neutrophils Percent Auto 77.1 % (45-73); Platelet Count 211 X10*3/uL (160-400); Red Cell Distribution Width 14.3 % (11.0-16.0); White Blood Count 10.7 X10*3/uL (4.8-10.8)
--- NOTE | 2022-06-03 07:38 | P.CONGS_ITS ---
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 I was c ontacted by the emergency room last night, by Linda Larsen, to address a mass in the pancreatic head that was also causing CBD and pancreatic duct dilation. In my communication with Dr. Morley about the availability of endoscopic ultrasound for FNA for biopsy of the mass, I was informed the services unavailable at our institution. The patient called her son, Jose Carlos, at [phone] and asked me to explain why she is in the hospital. At her request, IV explained to both her and her son that there is a pancreatic mass involving the head that is partially obstructing both the common bile duct and the pancreatic duct and falsely giving the impression of acute cholecystitis. Biopsy of this mass is in order to determine whether it is related to the lymphoma (please note that the patient reports that her care was at [facility] and that she had, she believes, a gastric lymphoma) or whether this is a new tumor. Patient continues to deny any abdominal pain and noted that she was having back pain that she assumed was secondary to a muscle strain or a compression fracture. Review of Systems Review of Systems: Yes all other systems are reviewed and are negative Constitutional: Constitutional: Reports as per [facility] Past Medical History Medical History (Updated 06/03/22 @ 12:43 by Liam Ho MD) Acute cholecystitis Hypertension Family History Family History Other No history of cancer Surgical History Surgical History No pertinent past surgical history Social History Social History Alcohol intake: never Patient Tobacco Use Status: Former Tobacco user Smoked in Last 30 Days: No Use of substances other than those prescribed or required for medical reasons: No Advance Directives: No Advance Directives Information Provided: No Meds Allergies Allergy/AdvReac Type Severity Reaction Status Date / Time proline [Proline] Allergy Mild REJECTION Verified 06/02/22 21:22 OF SUTURE amitriptyline [Amitriptyline] AdvReac Mild LETHARGY Verified 06/02/22 21:22 naproxen [Naproxen] AdvReac Mild ABDOMINAL Verified 06/02/22 21:22 PAIN trazodone [Trazodone] AdvReac Mild LETHARGY Verified 06/02/22 21:22 Active Medications: Current Medications Acetaminophen (Acetaminophen 325 Mg Tablet) 650 mg PO Q6H PRN PRN Reason: Pain, Mild (Pain Scale 1-3) Docusate Sodium (Docusate Sodium 100 Mg Capsule) 100 mg PO DAILY PRN PRN Reason: Constipation Heparin Sodium (Porcine) (Heparin Sodium,Porcine 5,000 Unit/Ml Vial) 5,000 unit SUBCUT Q12H [facility] Last Admin: 06/02/22 23:18 Dose: 5,000 unit Ceftriaxone Sodium 1 gm/ (Sodium Chloride) 50 mls @ 100 mls/hr IV Q24H [facility] Metronidazole (Flagyl) 500 mg in 100 mls @ 100 mls/hr IV Q8H [facility] Last Infusion: 06/03/22 06:33 Dose: Infused Morphine Sulfate (Morphine Sulfate 2 Mg/Ml Cartridge) 4 mg IVPUSH Q4H PRN; Protocol PRN Reason: Pain, Severe (Pain Scale 7-10) Ondansetron HCl (Ondansetron Hcl 4 Mg/2 Ml Vial) 4 mg IVPUSH Q8H PRN PRN Reason: Nausea and Vomiting Pharmacy Consult (Consult Rx Perform Med Rec) 1 each MISCELLANE ONCE PRN PRN Reason: Consult order Polyethylene Glycol (Polyethylene Glycol 3350 17 Gm Powd.Pack) 17 gm PO DAILY [facility] Polyethylene Glycol (Polyethylene Glycol 3350 17 Gm Powd.Pack) 17 gm PO DAILY [facility] Sodium Chloride (0.9 % Sodium Chloride Flush 3 Ml Syringe) 3 ml IVFLUSH QSHIFT [facility] Last Admin: 06/03/22 00:31 Dose: 3 ml Home Medications Medication Instructions Recorded Confirmed Last Taken Type acetaminophen 325 mg tablet 650 mg PO Q6H PRN Back Pain 06/03/22 06/03/22 06/02/22 History (Tylenol) cholecalciferol (vitamin D3) 25 25 mcg PO Q OTHER DAY 06/03/22 06/03/22 05/27/22 History mcg (1,000 unit) tablet (Vitamin D3) ibuprofen 200 mg tablet 400 mg PO Q8H PRN Back Pain 06/03/22 06/03/22 06/02/22 History Physical Exam Vital Signs: Vital Signs: Last Vital Signs Temp 98.2 F 06/03/22 04:32 Pulse 100 06/03/22 04:32 Resp 16 06/03/22 04:32 BP 152/68 H 06/03/22 04:32 Pulse Ox 94 06/03/22 04:32 O2 Del Method 06/03/22 04:32 BMI result Body Mass Index 16.9 The patient is non-toxic & in surprisngly good spirits NC/AT, PERRLA, EOMI Mood, affect & judgment all appear appropriate Sclera anicteric conjunctiva pink and moist Oropharynx is clear with no aphthous ulcers, Mallampati class 1, mucous membranes moist Neck is supple with no masses, adenopathy or bruits Heart is regular, normal S1-S2 no rubs or murmurs Lungs are clear and equal anteriorly with no audible wheezing, rubs or dullness to percussion Abdomen has no tenderness or RUQ pain & no demonstrable hernias. No HSM, rebound, rigidity, guarding, masses or bruits are present. Rectal exam is deferred Skin has good turgor and is free of rashes Extremities free of cyanosis clubbing edema Results Labs Result diagrams: 06/03/22 06:04 06/03/22 06:04 Labs: Abnormal lab results 06/02/22 06/02/22 06/02/22 Range/Units 12:16 15:17 16:27 RBC (4.20-5.50) X10*6/uL Immature Gran % (Auto) 0.5 H (0.0-0.4) % Neut % (Auto) 77.8 H (45-73) % Lymph % (Auto) 12.7 L (20-40) % Lymph # (Auto) 1.1 L (1.2-4.9) X10*3/uL Abs Immat Gran (auto) 0.04 H (0.00-0.03) X10*3/uL Carbon Dioxide (22-29) mmol/L Anion Gap (12-20) Random Glucose (60-115) mg/dL Total Protein 6.0 L (6.5-8.0) g/dL Urine Blood Small (1+) H (Negative) Ur Leukocyte Esterase Moderate (2+) H (Negative) Urine RBC 3-5 H (0-2) /HPF 06/03/22 06/03/22 Range/Units 06:04 06:04 RBC 3.90 L (4.20-5.50) X10*6/uL Immature Gran % (Auto) 0.5 H (0.0-0.4) % Neut % (Auto) 77.1 H (45-73) % Lymph % (Auto) 14.0 L (20-40) % Lymph # (Auto) (1.2-4.9) X10*3/uL Abs Immat Gran (auto) 0.05 H (0.00-0.03) X10*3/uL Carbon Dioxide 17 L (22-29) mmol/L Anion Gap 24 H (12-20) Random Glucose 57 L* (60-115) mg/dL Total Protein (6.5-8.0) g/dL Urine Blood (Negative) Ur Leukocyte Esterase (Negative) Urine RBC (0-2) /HPF Short CBC 06/02/22 06/03/22 Range/Units 12:16 06:04 WBC 8.6 10.7 (4.8-10.8) X10*3/uL Hgb 13.6 12.1 (12.0-16.0) g/dl Hct 41.6 38.1 (37.0-47.0) % Plt Count 203 211 (160-400) X10*3/uL BMP 06/02/22 06/03/22 15:17 06:04 Sodium 142 143 Potassium 3.9 4.0 Chloride 108 106 Carbon Dioxide 23 17 L BUN 11 16 Creatinine 0.61 0.70 Calcium 8.9 9.1 Liver Function 06/02/22 Range/Units 15:17 Total Bilirubin 0.8 (0.0-1.0) mg/dL AST 27 (5-31) U/L ALT 19 (0-31) U/L Alkaline Phosphatase 67 (39-117) U/L Albumin 3.6 (3.5-5.0) g/dL Urine 06/02/22 Range/Units 16:27 Urine Color Yellow Urine Appearance Clear Urine pH 5.0 (5.0-9.0) Ur Specific [place] 1.015 (1.005-1.025) Urine Protein Negative (Neg-Trace) mg/dL Urine Glucose (UA) Negative (Negative) mg/dL All other labs normal. Imaging Abdomen CT scan report/results: report reviewed and image reviewed CT scan - pelvis: report reviewed and image reviewed Additional studies: There is a mass in the head of the pancreas causing dilation of the pancreatic and common bile duct with the CBD enlarged at 1.2cm. This partial obstruction of the CBD is likely contributing to the appearance of the gallbladder. Assessment and Plan (1) Pancreatic mass: Status: Acute (2) Constipation: Status: Acute (3) Compression fracture of thoracic vertebra: Status: Acute Plan The pancreatic head mass is distorting the anatomy of the common bile duct and pancreatic duct. This makes CT appearance of acute cholecystitis unreliable, especially in the setting of no RUQ abdominal pain, normal CBC and normal LFTs. The patient's CT demonstrated that she had a fair stool burden and may benefit from an enema. She also had a fair amount of urine in her bladder and if she was not voiding, a Rodrigez may help with any lower abdominal pain. In communication with Dr. Morley, endoscopic ultrasound with FNA would be the preferred biopsy method of a pancreatic mass which is not available in this institution. Procedures Date of Service Date of Service: 06/03/22
[2022-06-03] MEDS: polyethylene glycoL 3350 17 GM POWD.PACK PO (08:00)
--- NOTE | 2022-06-03 08:30 | PC.NURSE ---
PT a&ox4, denies any pain. Resting quietly, no apparent distress. Meds given as documented.
[2022-06-03] MEDS: Heparin Sodium,Porcine 5,000 UNIT/ML VIAL 5000 UNIT SUBCUT ×2 (09:11→22:23)
--- NOTE | 2022-06-03 09:42 | PHA.MEDREC ---
Pharmacy Consult ? Medication Reconciliation Pharmacy has completed the medication reconciliation.
--- NOTE | 2022-06-03 09:47 | PHA.MEDREC ---
MED REC COMPLETE, NO ISSUES Pharmacy Consult ? Medication Reconciliation Pharmacy has completed the medication reconciliation.
--- NOTE | 2022-06-03 10:40 | P.PNIM_ITS ---
Subjective Subjective Date of Service: 06/03/22 Interval History: the patient was seen and evaluated this morning Laying in bed, feels more comfortable after morphine as pain is under better control in her back Denies any fever, chills or shortness of breath No reported other overnight events. Systemic review: No fever, chills or weakness No chest pain, palpitation No shortness of breath or coughing No abdominal pain, nausea or vomiting No urinary symptoms No reported rash Back pain Physical Exam Vital Signs: Vital Signs: Last Vital Signs Temp 98.2 F 06/03/22 07:56 Pulse 93 06/03/22 07:56 Resp 16 06/03/22 07:56 BP 117/52 L 06/03/22 07:56 Pulse Ox 94 06/03/22 04:32 O2 Del Method 06/03/22 07:56 BMI result Body Mass Index 16.9 Const: Other: Constitutional : Awake, interactive, not in distress Neck : Normal inspection, Supple Cardiovascular : RRR, no JVP, no lower extremity edema Respiratory : good bilateral air entry, no crackles, wheezes or rhonchi Gastrointestinal: soft, lax, Normal bowel sounds, Non tender Skin : Warm, Dry Neurological : Alert & oriented x3, No focal deficit Objective Data Active Medications Acetaminophen (Acetaminophen 325 Mg Tablet) 650 mg PO Q6H PRN PRN Reason: Pain, Mild (Pain Scale 1-3) Docusate Sodium (Docusate Sodium 100 Mg Capsule) 100 mg PO DAILY PRN PRN Reason: Constipation Heparin Sodium (Porcine) (Heparin Sodium,Porcine 5,000 Unit/Ml Vial) 5,000 unit SUBCUT Q12H [facility] Last Admin: 06/03/22 09:11 Dose: 5,000 unit Documented By: RAYMON Ceftriaxone Sodium 1 gm/ (Sodium Chloride) 50 mls @ 100 mls/hr IV Q24H [facility] Metronidazole (Flagyl) 500 mg in 100 mls @ 100 mls/hr IV Q8H [facility] Last Infusion: 06/03/22 06:33 Dose: 0 mls/hr Documented By: SIDNEY Morphine Sulfate (Morphine Sulfate 2 Mg/Ml Cartridge) 4 mg IVPUSH Q4H PRN; Protocol PRN Reason: Pain, Severe (Pain Scale 7-10) Ondansetron HCl (Ondansetron Hcl 4 Mg/2 Ml Vial) 4 mg IVPUSH Q8H PRN PRN Reason: Nausea and Vomiting Pharmacy Consult (Consult Rx Perform Med Rec) 1 each MISCELLANE ONCE PRN PRN Reason: Consult order Polyethylene Glycol (Polyethylene Glycol 3350 17 Gm Powd.Pack) 17 gm PO DAILY [facility] Last Admin: 06/03/22 08:00 Dose: 17 gm Documented By: RAYMON Polyethylene Glycol (Polyethylene Glycol 3350 17 Gm Powd.Pack) 17 gm PO DAILY [facility] Last Admin: 06/03/22 08:35 Dose: Not Given Documented By: RAYMON Non-Admin Reason: Duplicate Order Sodium Chloride (0.9 % Sodium Chloride Flush 3 Ml Syringe) 3 ml IVFLUSH QSHIFT [facility] Last Admin: 06/03/22 07:55 Dose: 3 ml Documented By: RAYMON Labs CBC & Chem 7: 06/03/22 06:04 06/03/22 06:04 Labs: Laboratory Results - last 24 hr 06/02/22 06/02/22 06/02/22 11:26 12:16 12:16 MCV 93.9 MCH 30.7 MCHC 32.7 RDW 13.6 Plt Count 203 MPV 9.5 Immature Gran % (Auto) 0.5 H Neut % (Auto) 77.8 H Lymph % (Auto) 12.7 L [place] % (Auto) 7.7 Eos % (Auto) 0.8 Baso % (Auto) 0.5 Lymph # (Auto) 1.1 L [place] # (Auto) 0.7 Eos # (Auto) 0.1 Baso # (Auto) 0.0 Abs Immat Gran (auto) 0.04 H Absolute Neuts (auto) 6.7 Absolute Nucleated RBC 0.000 Nucleated RBC % (auto) 0.0 Anion Gap Estim Creat Clear Calc Estimated GFR Random Glucose Lactic Acid 1.0 Calcium Magnesium Total Bilirubin AST ALT Alkaline Phosphatase Troponin I High Sens Total Protein Albumin Lipase Urine Color Urine Appearance Urine pH Ur Specific [place] Urine Protein Urine Glucose (UA) Urine Ketones Urine Blood Urine Nitrite Ur Leukocyte Esterase Urine RBC Urine WBC Ur Squamous Epith Cells Urine Bacteria Hyaline Casts COVID-19 (TOMER) Negative COVID-19 Clin Com See Note 06/02/22 06/02/22 06/02/22 12:16 15:17 16:27 MCV MCH MCHC RDW Plt Count MPV Immature Gran % (Auto) Neut % (Auto) Lymph % (Auto) [place] % (Auto) Eos % (Auto) Baso % (Auto) Lymph # (Auto) [place] # (Auto) Eos # (Auto) Baso # (Auto) Abs Immat Gran (auto) Absolute Neuts (auto) Absolute Nucleated RBC Nucleated RBC % (auto) Anion Gap 15 Estim Creat Clear Calc 43.4 Estimated GFR > 60 Random Glucose 74 Lactic Acid Calcium 8.9 Magnesium 1.6 Total Bilirubin 0.8 AST 27 ALT 19 Alkaline Phosphatase 67 Troponin I High Sens 7.2 Total Protein 6.0 L Albumin 3.6 Lipase 11 Urine Color Yellow Urine Appearance Clear Urine pH 5.0 Ur Specific [place] 1.015 Urine Protein Negative Urine Glucose (UA) Negative Urine Ketones 15 Urine Blood Small (1+) H Urine Nitrite Negative Ur Leukocyte Esterase Moderate (2+) H Urine RBC 3-5 H Urine WBC 6-10 Ur Squamous Epith Cells 3-5 Urine Bacteria None Seen Hyaline Casts 0-2 COVID-19 ([facility]) COVID-19 Clin Com 06/03/22 06/03/22 06:04 06:04 MCV 97.7 MCH 31.0 MCHC 31.8 RDW 14.3 Plt Count 211 MPV 10.1 Immature Gran % (Auto) 0.5 H Neut % (Auto) 77.1 H Lymph % (Auto) 14.0 L [place] % (Auto) 7.5 Eos % (Auto) 0.4 Baso % (Auto) 0.5 Lymph # (Auto) 1.5 [place] # (Auto) 0.8 Eos # (Auto) 0.0 Baso # (Auto) 0.1 Abs Immat Gran (auto) 0.05 H Absolute Neuts (auto) 8.2 Absolute Nucleated RBC 0.000 Nucleated RBC % (auto) 0.0 Anion Gap 24 H Estim Creat Clear Calc 37.8 Estimated GFR > 60 Random Glucose 57 L* Lactic Acid Calcium 9.1 Magnesium Total Bilirubin AST ALT Alkaline Phosphatase Troponin I High Sens Total Protein Albumin Lipase Urine Color Urine Appearance Urine pH Ur Specific [place] Urine Protein Urine Glucose (UA) Urine Ketones Urine Blood Urine Nitrite Ur Leukocyte Esterase Urine RBC Urine WBC Ur Squamous Epith Cells Urine Bacteria Hyaline Casts COVID-19 ([facility]) COVID-19 Clin Com Microbiology Microbiology Results: Microbiology 06/02/22 16:45 Urine Culture - Preliminary Urine clean catch - Clean Catch Midstream Culture in progress. Assessment and Plan (1) Pancreatic mass: Status: Acute (2) Constipation: Status: Acute (3) Compression fracture of thoracic vertebra: Status: Acute Plan 86-year-old female with past medical history of hypertension presents to the hospital with complaints of back pain found to have acute cholecystitis as well as a pancreatic mass # acute cholecystitis No evidence of pain, elevated LFT Likely a result from pancreatic mass Started on IV antibiotics Pending GI evaluation Surgery recommended no intervention as the abnormality on images likely a result of distortion from pancreatic mass # Pancreatic lesion Causing distortion of the bile duct and abnormal looking gallbladder GI consult pending Surgery input appreciated, endoscopic ultrasound with FNA would be the preferred biopsy method of a pancreatic mass which is not available in this institution Start diet # compression fractures Questionable possible metastatic disease Pain management, physical therapy evaluation # HTN Talk herself of medications Blood pressure fairly controlled Monitor the need of blood pressure meds # Constipation Enema Miralax DVT ppx Heparin subq Patient will need overnight hospital stay for evaluation of pancreatic mass and possible need of transfer to tertiary medical center. Quality Stroke Does the patient have a stroke diagnosis?: No VTE Prior VTE?: No VTE Risk Level:: Medical - moderate - high VTE Device Contraindication: Treatment Not Indicated VTE Drug Contraindication: N/A - Med Ordered
[2022-06-03] MEDS: Morphine Sulfate 2 MG/ML CARTRIDGE 4 MG IVPUSH (11:30)
--- NOTE | 2022-06-03 14:55 | PC.NURSE ---
PT voided in bedpan, one assist.
[2022-06-03] MEDS: Omeprazole 20 MG CAPSULE.DR PO (15:03)
--- NOTE | 2022-06-03 15:15 | P.CNGI_ITS ---
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 History was obtained from the patient, who states that for almost 10 days now, she has had low back pain that has progressively worsened. She was also seen in the emergency room for the same a week ago and at that time was diagnosed with lumbar strain and discharged with OTC pain control. On the day of presentation, her pain worsened to the point that she was unable to move or get out of the bed. She denies any abdominal pain, nausea, vomiting, changes in appetite or recent weight loss. When she presented to the hospital, was noted to be mildly tachycardic but otherwise hemodynamically stable. Labs were significant for normal WBC and H&H. Comprehensive metabolic panel without any LFT abnormality. Normal lipase. She also had an episode hypoglycemia this morning, patient does not report any awareness. CT abdomen and pelvis was done for further evaluation that showed 2 x 4 cm heterogenous mass in the body of the pancreas with DOWNSTREAM dilation of the pancreatic and biliary duct. Of note, there is also thickened gastric wall in the area that abuts against the pancreas. In terms of her prior history of gastric lymphoma, reports getting curative chemotherapy for this almost 11 years ago. Review of Systems Review of Systems: Yes all other systems are reviewed and are negative PMFSH Past Medical History Medical History (Updated 06/03/22 @ 15:22 by Melodie Morley MD) Gastric lymphoma Hypertension Family History Family History Other No history of cancer Surgical History Surgical History No pertinent past surgical history Social History Social History Household Members: None Housing: House Do you presently have visiting nurse or other home services: Yes (meals on wheels) Alcohol intake: never Patient Tobacco Use Status: Never used Tobacco e-Cigarette/Vaping Use: Never Used Advance Directives Date on File: 06/03/22 service: No Current occupational status: retired Meds Allergies Allergy/AdvReac Type Severity Reaction Status Date / Time proline [Proline] Allergy Mild REJECTION Verified 06/02/22 21:22 OF SUTURE amitriptyline [Amitriptyline] AdvReac Mild LETHARGY Verified 06/02/22 21:22 naproxen [Naproxen] AdvReac Mild ABDOMINAL Verified 06/02/22 21:22 PAIN trazodone [Trazodone] AdvReac Mild LETHARGY Verified 06/02/22 21:22 Active Medications: Current Medications Acetaminophen (Acetaminophen 325 Mg Tablet) 650 mg PO Q6H PRN PRN Reason: Pain, Mild (Pain Scale 1-3) Acetaminophen (Acetaminophen 325 Mg Tablet) 975 mg PO QSHIFT [facility] Docusate Sodium (Docusate Sodium 100 Mg Capsule) 100 mg PO DAILY PRN PRN Reason: Constipation Heparin Sodium (Porcine) (Heparin Sodium,Porcine 5,000 Unit/Ml Vial) 5,000 unit SUBCUT Q12H [facility] Last Admin: 06/03/22 09:11 Dose: 5,000 unit Ceftriaxone Sodium 1 gm/ (Sodium Chloride) 50 mls @ 100 mls/hr IV Q24H [facility] Metronidazole (Flagyl) 500 mg in 100 mls @ 100 mls/hr IV Q8H [facility] Last Admin: 06/03/22 15:03 Dose: 100 mls/hr Ibuprofen (Ibuprofen 400 Mg Tablet) 400 mg PO BIDWM [facility] Lidocaine (Lidocaine 4 % Patch Adh..Patch) 1 patch TRANSDERMA DAILY ERIC; P rotocol Omeprazole (Omeprazole 20 Mg Capsule.Dr) 20 mg PO DAILY@0630 [facility] Last Admin: 06/03/22 15:03 Dose: 20 mg Ondansetron HCl (Ondansetron Hcl 4 Mg/2 Ml Vial) 4 mg IVPUSH Q8H PRN PRN Reason: Nausea and Vomiting Oxycodone HCl (Oxycodone Hcl Immed Release 5 Mg Tablet) 5 mg PO Q4H PRN PRN Reason: Pain, Severe (Pain Scale 7-10) Pharmacy Consult (Consult Rx Perform Med Rec) 1 each MISCELLANE ONCE PRN PRN Reason: Consult order Polyethylene Glycol (Polyethylene Glycol 3350 17 Gm Powd.Pack) 17 gm PO DAILY [facility] Last Admin: 06/03/22 08:00 Dose: 17 gm Polyethylene Glycol (Polyethylene Glycol 3350 17 Gm Powd.Pack) 17 gm PO DAILY [facility] Last Admin: 06/03/22 08:35 Dose: Not Given Sodium Chloride (0.9 % Sodium Chloride Flush 3 Ml Syringe) 3 ml IVFLUSH QSHIFT [facility] Last Admin: 06/03/22 07:55 Dose: 3 ml Home Medications Medication Instructions Recorded Confirmed Last Taken Type acetaminophen 325 mg tablet 650 mg PO Q6H PRN Back Pain 06/03/22 06/03/22 History (Tylenol) cholecalciferol (vitamin D3) 25 25 mcg PO Q OTHER DAY 06/03/22 06/03/22 05/27/22 History mcg (1,000 unit) tablet (Vitamin D3) ibuprofen 200 mg tablet 400 mg PO Q8H PRN Back Pain 06/03/22 06/03/22 06/02/22 History Physical Exam Vital Signs: Vital Signs: Last Vital Signs Temp 98.7 F 06/03/22 11:53 Pulse 98 06/03/22 11:53 Resp 16 06/03/22 11:53 BP 137/70 06/03/22 11:53 Pulse Ox 97 06/03/22 11:53 O2 Del Method 06/03/22 11:53 BMI result Body Mass Index 16.9 Gen appear: Frail appearing HEENT: no icterus, no cervical lymphadenopathy, bitemporal wasting Chest: No overt resp distress CVS: S1/S2, regular Abd: soft, nontender, nondistended Psych: Stable affect, answering questions appropriately Neuro: A/Ox3 noted to move all extremities spontaneously Ext: no peripheral edema MSK: no TTP over thoracic spine Results Labs CBC & Chem 7: 06/03/22 06:04 06/04/22 05:49 Labs: Short CBC 06/03/22 Range/Units 06:04 WBC 10.7 (4.8-10.8) X10*3/uL Hgb 12.1 (12.0-16.0) g/dl Hct 38.1 (37.0-47.0) % Plt Count 211 (160-400) X10*3/uL BMP 06/02/22 06/03/22 15:17 06:04 Sodium 142 143 Potassium 3.9 4.0 Chloride 108 106 Carbon Dioxide 23 17 L BUN 11 16 Creatinine 0.61 0.70 Calcium 8.9 9.1 Liver Function 11/19/22 Range/Units 15:17 Total Bilirubin 0.8 (0.0-1.0) mg/dL AST 27 (5-31) U/L ALT 19 (0-31) U/L Alkaline Phosphatase 67 (39-117) U/L Albumin 3.6 (3.5-5.0) g/dL Urine 06/02/22 Range/Units 16:27 Urine Color Yellow Urine Appearance Clear Urine pH 5.0 (5.0-9.0) Ur Specific [place] 1.015 (1.005-1.025) Urine Protein Negative (Neg-Trace) mg/dL Urine Glucose (UA) Negative (Negative) mg/dL Microbiology Microbiology Results: Microbiology 06/02/22 12:16 Blood - Venous Blood Culture - Preliminary No growth after 24 hours. 06/02/22 12:16 Blood - Venous Blood Culture - Preliminary No growth after 24 hours. 06/02/22 16:45 Urine clean catch - Clean Catch Midstream Urine Culture - Preliminary Culture in progress. Imaging CT scan - abdomen: Radiologist's impression: 1. Mass at the body of the pancreas suspicious for neoplasm. The mass lies at the anterior margin of the pancreas and does abut against the antrum of the stomach where there is edema in the wall. This raises question of invasion of the gastric wall by the pancreatic mass. 2. Cholelithiasis. There is distention of the gallbladder with edema of the wall. No calcified stone seen in the bile ducts. There is dilatation of the pancreatic duct and intrahepatic bile ducts. Stricture at the Sphincter of Oddi is not excluded. 3. Edema in the right groin surrounding the right femoral artery. Correlate with history. No drainable fluid collection or evidence of contrast extravasation. 4. Compression fracture of the superior endplate of the T11 vertebrae which appears acute. No focal bone destruction to suggest metastatic change. 5. Diverticulosis of colon. No acute abnormality of the bowel. 6. Trace dependent left pleural effusion. Assessment and Plan (1) Pancreatic mass: Status: Acute Plan Differentials include lymphoma, PNET, panc adenoca. Pt with non obstructive LFTs. Will need EUS/FNA for tissue diagnosis, will request urgent referral. MRI abd with and without contrast (pancreas procotol) Will also plan for EGD to eval for i) gastric wall thickening noted on CT and ii) ampulla, as both ducts dilated downstream to the mass Consider frequent POC glucose checks Bowel regimen Procedures Date of Service Date of Service: 06/03/22
[2022-06-03] MEDS: Docusate Sodium 100 MG CAPSULE PO (17:05)
[2022-06-03 19:09] LABS: Glucose, Whole Blood 114 mg/dL (60-115)
[2022-06-03] MEDS: cefTRIAXone sodium 1 GM in 0.9 % Sodium Chloride 50 ML IV (19:41)
[2022-06-03 22:42] LABS: Glucose, Whole Blood 110 mg/dL (60-115)
[2022-06-03] MEDS: Acetaminophen 325 MG TABLET 975 MG PO (23:38)
[2022-06-04 03:58] VITALS: BP 126/60; PULSE 93; RESP 17; TEMP 36.7; O2SAT 96
[2022-06-04] MEDS: Omeprazole 20 MG CAPSULE.DR PO (05:31)
[2022-06-04] MEDS: metroNIDAZOLE/NS 500 MG/100 ML PIGGYBACK 100 MG IV (05:33)
[2022-06-04 06:46] LABS: Alanine Aminotransferase 17 U/L (0-31); Albumin Level 3.2 g/dL (3.5-5.0); Alkaline Phosphatase 68 U/L (39-117); Aspartate Amino Transferase 24 U/L (5-31); Bilirubin Direct < 0.2 mg/dL (0.0-0.5); Bilirubin Total 0.4 mg/dL (0.0-1.0); Total Protein 5.3 g/dL (6.5-8.0)
[2022-06-04 06:55] LABS: Anion Gap 11 (12-20); Blood Urea Nitrogen 18 mg/dL (9-16); Calcium 8.9 mg/dL (8.4-10.2); Carbon Dioxide 27 mmol/L (22-29); Chloride 105 mmol/L (96-108); Creatinine Clr Calc Pharmacy 40.7; Estimated Glomerular Filt Rate > 60; Glucose Random 88 mg/dL (60-115); Potassium 4.4 mmol/L (3.3-5.1); Sodium 139 mmol/L (135-145)
[2022-06-04 08:00] VITALS: BP 134/65; PULSE 85; RESP 18; TEMP 36.6; O2SAT 96
[2022-06-04 08:05] LABS: Glucose, Whole Blood 99 mg/dL (60-115)
[2022-06-04] MEDS: Lidocaine 4 % Patch ADH..PATCH 1 PATCH TRANSDERMA (10:40)
[2022-06-04] MEDS: Heparin Sodium,Porcine 5,000 UNIT/ML VIAL 5000 UNIT SUBCUT (10:40)
[2022-06-04] MEDS: polyethylene glycoL 3350 17 GM POWD.PACK PO ×2 (10:40→20:08)
[2022-06-04] MEDS: Acetaminophen 325 MG TABLET 975 MG PO ×2 (10:41→23:28)
[2022-06-04] MEDS: 0.9 % Sodium Chloride Flush 3 ML SYRINGE IVFLUSH ×3 (10:42→23:31)
[2022-06-04] MEDS: Ibuprofen 400 MG TABLET PO (10:42)
[2022-06-04 11:58] LABS: Glucose, Whole Blood 107 mg/dL (60-115)
[2022-06-04 11:59] VITALS: BP 165/77; PULSE 83; RESP 16; TEMP 36.6; O2SAT 96
--- NOTE | 2022-06-04 13:17 | MHC.CM.PN ---
PT REPORTS SHE LIVES ALONE HOWEVER HER SON AND [id number] ARE IN THE PROCESS OF MOVING IN SHE REPORTS SHE HAS MEALS ON WHEELS AND FRIENDS NEARBY THAT ASSIST WITH THINGS LIKE SHOPPING SHE REPORTS SHE HAS A CANE AND WALKER SHE USES IN THE COMMUNITY WHEN NEEDED SHE SAYS SHE IS COVID VAX X 2\PCP: GUSTAVO HOUSTON COPY OF HCP REQUESTED IMM DELIVERED CURRENT DC PLAN IS HOME WITH RESUMPTION OF SERVICES FAMILY TO TRANSPORT
--- NOTE | 2022-06-04 14:23 | P.PNIM_ITS ---
Subjective Subjective Date of Service: 06/04/22 Interval History: the patient was seen and evaluated this morning feels more comfortable as pain is under better control in her back Denies any fever, chills or shortness of breath No reported other overnight events. Systemic review: No fever, chills or weakness No chest pain, palpitation No shortness of breath or coughing No abdominal pain, nausea or vomiting No urinary symptoms No reported rash Back pain Physical Exam Vital Signs: Vital Signs: Last Vital Signs Temp 97.8 F 06/04/22 11:59 Pulse 83 06/04/22 11:59 Resp 16 06/04/22 11:59 BP 165/77 H 06/04/22 11:59 Pulse Ox 96 06/04/22 11:59 O2 Del Method 06/04/22 11:59 BMI result Body Mass Index 16.9 Const: Other: Constitutional : Awake, interactive, not in distress Neck : Normal inspection, Supple Cardiovascular : RRR, no JVP, no lower extremity edema Respiratory : good bilateral air entry, no crackles, wheezes or rhonchi Gastrointestinal: soft, lax, Normal bowel sounds, Non tender Skin : Warm, Dry Neurological : Alert & oriented x3, No focal deficit Objective Data Active Medications Acetaminophen (Acetaminophen 325 Mg Tablet) 650 mg PO Q6H PRN PRN Reason: Pain, Mild (Pain Scale 1-3) Acetaminophen (Acetaminophen 325 Mg Tablet) 975 mg PO QSHIFT [facility] Last Admin: 06/04/22 10:41 Dose: 975 mg Documented By: FERMIN Docusate Sodium (Docusate Sodium 100 Mg Capsule) 100 mg PO DAILY PRN PRN Reason: Constipation Last Admin: 06/03/22 17:05 Dose: 100 mg Documented By: REX Heparin Sodium (Porcine) (Heparin Sodium,Porcine 5,000 Unit/Ml Vial) 5,000 unit SUBCUT Q12H [facility] Last Admin: 06/04/22 10:40 Dose: 5,000 unit Documented By: FERMIN Ibuprofen (Ibuprofen 400 Mg Tablet) 400 mg PO BIDWM [facility] Last Admin: 06/04/22 10:42 Dose: 400 mg Documented By: FERMIN Lidocaine (Lidocaine 4 % Patch Adh..Patch) 1 patch TRANSDERMA DAILY [facility]; Protocol Last Admin: 06/04/22 10:40 Dose: 1 patch Documented By: FERMIN Omeprazole (Omeprazole 20 Mg Capsule.) 20 mg PO DAILY@0630 [facility] Last Admin: 06/04/22 05:31 Dose: 20 mg Documented By: LINDSEY Ondansetron HCl (Ondansetron Hcl 4 Mg/2 Ml Vial) 4 mg IVPUSH Q8H PRN PRN Reason: Nausea and Vomiting Oxycodone HCl (Oxycodone Hcl Immed Release 5 Mg Tablet) 5 mg PO Q4H PRN PRN Reason: Pain, Severe (Pain Scale 7-10) Pharmacy Consult (Consult Rx Perform Med Rec) 1 each MISCELLANE ONCE PRN PRN Reason: Consult order Polyethylene Glycol (Polyethylene Glycol 3350 17 Gm Powd.Pack) 17 gm PO DAILY [facility] Last Admin: 06/04/22 10:40 Dose: 17 gm Documented By: FERMIN Polyethylene Glycol (Polyethylene Glycol 3350 17 Gm Powd.Pack) 17 gm PO BEDTIME [facility] Sodium Chloride (0.9 % Sodium Chloride Flush 3 Ml Syringe) 3 ml IVFLUSH QSHIFT [facility] Last Admin: 06/04/22 10:42 Dose: 3 ml Documented By: FERMIN Labs CBC & Chem 7: 06/03/22 06:04 06/04/22 05:49 Labs: Laboratory Results - last 24 hr 06/03/22 06/03/22 06/04/22 17:57 22:37 05:49 Anion Gap 11 L Estim Creat Clear Calc 40.7 Estimated GFR > 60 POC Glucose 114 110 Random Glucose 88 Calcium 8.9 Total Bilirubin Direct Bilirubin AST ALT Alkaline Phosphatase Total Protein Albumin 06/04/22 06/04/22 06/04/22 05:49 07:58 11:08 Anion Gap Estim Creat Clear Calc Estimated GFR POC Glucose 99 107 Random Glucose Calcium Total Bilirubin 0.4 Direct Bilirubin < 0.2 AST 24 ALT 17 Alkaline Phosphatase 68 Total Protein 5.3 L Albumin 3.2 L Microbiology Microbiology Results: Microbiology 06/02/22 16:45 Urine Culture - Final Urine clean catch - Clean Catch Midstream 06/02/22 12:16 Blood Culture - Preliminary Blood - Venous No growth after 24 hours. 06/02/22 12:16 Blood Culture - Preliminary Blood - Venous No growth after 24 hours. Assessment and Plan (1) Pancreatic mass: Status: Acute (2) Constipation: Status: Acute (3) Compression fracture of thoracic vertebra: Status: Acute Plan 86-year-old female with past medical history of hypertension presents to the hospital with complaints of back pain found to have acute cholecystitis as well as a pancreatic mass # Cholethiasis No evidence of acute cholecystitis, elevated LFT Likely a result from pancreatic mass DC IV antibiotics Surgery recommended no intervention as the abnormality on images likely a result of distortion from pancreatic mass # Pancreatic lesion Causing distortion of the bile duct and abnormal looking gallbladder Surgery input appreciated, endoscopic ultrasound with FNA would be the preferred biopsy method of a pancreatic mass GI evaluation, keep npo, needs EUS which will try to arrange in\outpatient tolerating diet # compression fractures Questionable possible metastatic disease Pain management, physical therapy evaluation # HTN Take herself of medications Blood pressure fairly controlled Monitor the need of blood pressure meds # Constipation Enema Miralax DVT ppx Heparin subq Patient will need overnight hospital stay for evaluation of pancreatic mass and possible need of transfer to tertiary medical center. Quality Stroke Does the patient have a stroke diagnosis?: No VTE Prior VTE?: No VTE Risk Level:: Medical - moderate - high VTE Device Contraindication: Treatment Not Indicated VTE Drug Contraindication: N/A - Med Ordered
[2022-06-04 14:38] VITALS: BMI 16.9
[2022-06-04 15:37] VITALS: BP 120/60; PULSE 93; RESP 17; TEMP 36.7; O2SAT 96
[2022-06-04 15:44] LABS: Glucose, Whole Blood 125 mg/dL (60-115)
--- NOTE | 2022-06-04 16:20 | PM.GIPN ---
Subjective Subjective Date of Service: 06/04/22 Critical Care Time (minutes): 0 Comment: Reports improvement in back pain. Able to walk with a walker today with PT without siginificant discomfort. No abd pain, N,V. Physical Exam Vital Signs: Vital Signs: Last Vital Signs Temp 98.0 F 06/04/22 15:37 Pulse 93 06/04/22 15:37 Resp 17 06/04/22 15:37 BP 120/60 06/04/22 15:37 Pulse Ox 96 06/04/22 15:37 O2 Del Method 06/04/22 15:37 BMI result Body Mass Index 16.9 Gen appear: Frail appearing Abd: soft, nontender, nondistended Objective Data Labs CBC & Chem 7: 06/03/22 06:04 06/04/22 05:49 Labs: Laboratory Results - last 24 hr 06/03/22 06/03/22 06/04/22 17:57 22:37 05:49 Sodium 139 Potassium 4.4 Chloride 105 Carbon Dioxide 27 Anion Gap 11 L BUN 18 H Creatinine 0.65 Estim Creat Clear Calc 40.7 Estimated GFR > 60 POC Glucose 114 110 Random Glucose 88 Calcium 8.9 Total Bilirubin Direct Bilirubin AST ALT Alkaline Phosphatase Total Protein Albumin 06/04/22 06/04/22 06/04/22 05:49 07:58 11:08 Sodium Potassium Chloride Carbon Dioxide Anion Gap BUN Creatinine Estim Creat Clear Calc Estimated GFR POC Glucose 99 107 Random Glucose Calcium Total Bilirubin 0.4 Direct Bilirubin < 0.2 AST 24 ALT 17 Alkaline Phosphatase 68 Total Protein 5.3 L Albumin 3.2 L 06/04/22 15:40 Sodium Potassium Chloride Carbon Dioxide Anion Gap BUN Creatinine Estim Creat Clear Calc Estimated GFR POC Glucose 125 H Random Glucose Calcium Total Bilirubin Direct Bilirubin AST ALT Alkaline Phosphatase Total Protein Albumin Microbiology Microbiology Results: Microbiology 06/02/22 12:16 Blood - Venous Blood Culture - Preliminary No growth after 48 hours. 06/02/22 12:16 Blood - Venous Blood Culture - Preliminary No growth after 48 hours. 06/02/22 16:45 Urine clean catch - Clean Catch Midstream Urine Culture - Final Procedures Date of Service Date of Service: 06/04/22 Progress Note: A&P Assessment and plan (1) Pancreatic mass: Status: Acute (2) Dilated bile duct: Status: Acute (3) Dilated pancreatic duct: Status: Acute Plan EGD tentatively scheduled for tomorrow. Please keep NPO after MN. MRI pancreas protocol Urgent referral to [facility] for EUS Time Spent With Patient Time: Total time spent is greater than 50% in coordination of care (as documented) at patient's floor/unit and/or counseling patient: Quality Stroke Does the patient have a stroke diagnosis?: No VTE Prior VTE?: No VTE Risk Level:: Medical - moderate - high VTE Device Contraindication: Treatment Not Indicated VTE Drug Contraindication: N/A - Med Ordered
[2022-06-04 19:15] VITALS: BP 156/67; PULSE 91; RESP 18; TEMP 36.5; O2SAT 96
[2022-06-04 19:24] LABS: Glucose, Whole Blood 108 mg/dL (60-115)
[2022-06-04 23:44] VITALS: BP 168/68; PULSE 97; RESP 14; TEMP 36.3; O2SAT 97
[2022-06-05] VITALS (9 sets, daily range): BP systolic 114–171; BP diastolic 55–97; PULSE 71–122; RESP 13–18; TEMP 36–37.1; O2SAT 94–99
[2022-06-05] MEDS: Omeprazole 20 MG CAPSULE.DR PO (05:44)
[2022-06-05 07:35] LABS: Alanine Aminotransferase 24 U/L (0-31); Albumin Level 3.4 g/dL (3.5-5.0); Alkaline Phosphatase 77 U/L (39-117); Aspartate Amino Transferase 37 U/L (5-31); Bilirubin Direct 0.2 mg/dL (0.0-0.5); Bilirubin Total 0.5 mg/dL (0.0-1.0); Total Protein 5.6 g/dL (6.5-8.0)
[2022-06-05 07:50] LABS: Glucose, Whole Blood 96 mg/dL (60-115)
[2022-06-05] MEDS: polyethylene glycoL 3350 17 GM POWD.PACK PO (09:05)
[2022-06-05] MEDS: 0.9 % Sodium Chloride Flush 3 ML SYRINGE IVFLUSH ×2 (09:05→21:37)
[2022-06-05] MEDS: Acetaminophen 325 MG TABLET 975 MG PO (09:06)
--- NOTE | 2022-06-05 10:36 | HO.PM.IMPN ---
Subjective Subjective Date of Service: 06/05/22 Interval History: the patient was seen and evaluated this morning pain is better controlled in her back MRI still pending reading Plan for EGD today No reported other overnight events. Systemic review: No fever, chills or weakness No chest pain, palpitation No shortness of breath or coughing No abdominal pain, nausea or vomiting No urinary symptoms No reported rash Back pain Physical Exam Vital Signs: Vital Signs: Last Vital Signs Temp 97.4 F 06/05/22 07:38 Pulse 96 06/05/22 07:38 Resp 16 06/05/22 07:38 BP 167/85 H 06/05/22 07:38 Pulse Ox 97 06/05/22 07:38 O2 Del Method 06/05/22 07:38 BMI result Body Mass Index 16.9 Const: Other: Constitutional : Awake, interactive, not in distress Neck : Normal inspection, Supple Cardiovascular : RRR, no JVP, no lower extremity edema Respiratory : good bilateral air entry, no crackles, wheezes or rhonchi Gastrointestinal: soft, lax, Normal bowel sounds, Non tender Skin : Warm, Dry Neurological : Alert & oriented x3, No focal deficit Objective Data Active Medications Acetaminophen (Acetaminophen 325 Mg Tablet) 650 mg PO Q6H PRN PRN Reason: Pain, Mild (Pain Scale 1-3) Acetaminophen (Acetaminophen 325 Mg Tablet) 975 mg PO QSHIFT [facility] Last Admin: 06/05/22 09:06 Dose: 975 mg Documented By: NOAH Docusate Sodium (Docusate Sodium 100 Mg Capsule) 100 mg PO DAILY PRN PRN Reason: Constipation Last Admin: 06/03/22 17:05 Dose: 100 mg Documented By: REX Heparin Sodium (Porcine) (Heparin Sodium,Porcine 5,000 Unit/Ml Vial) 5,000 unit SUBCUT Q12H [facility] Last Admin: 06/04/22 10:40 Dose: 5,000 unit Documented By: FERMIN Ibuprofen (Ibuprofen 400 Mg Tablet) 400 mg PO BIDWM [facility] Last Admin: 06/05/22 09:08 Dose: Not Given Documented By: NOAH Non-Admin Reason: Patient Refused Lactulose (Lactulose 20 Gm/30 Ml Solution) 20 gm PO BID [facility] Lidocaine (Lidocaine 4 % Patch Adh..Patch) 1 patch TRANSDERMA DAILY [facility]; Protocol Last Admin: 06/05/22 09:11 Dose: Not Given Documented By: NOAH Non-Admin Reason: Patient Refused Omeprazole (Omeprazole 20 Mg Edy.) 20 mg PO DAILY@0630 [facility] Last Admin: 06/05/22 05:44 Dose: 20 mg Documented By: ROWENAAWUNI Ondansetron HCl (Ondansetron Hcl 4 Mg/2 Ml Vial) 4 mg IVPUSH Q8H PRN PRN Reason: Nausea and Vomiting Oxycodone HCl (Oxycodone Hcl Immed Release 5 Mg Tablet) 5 mg PO Q4H PRN PRN Reason: Pain, Severe (Pain Scale 7-10) Pharmacy Consult (Consult Rx Perform Med Rec) 1 each MISCELLANE ONCE PRN PRN Reason: Consult order Sodium Chloride (0.9 % Sodium Chloride Flush 3 Ml Syringe) 3 ml IVFLUSH QSHIFT [facility] Last Admin: 06/05/22 09:05 Dose: 3 ml Documented By: NOAH Labs CBC & Chem 7: 06/03/22 06:04 06/04/22 05:49 Labs: Laboratory Results - last 24 hr 06/04/22 06/04/22 06/04/22 11:08 15:40 16:14 POC Glucose 107 125 H Total Bilirubin Direct Bilirubin AST ALT Alkaline Phosphatase Total Protein Albumin Carcinoembryonic Ag 2.40 06/04/22 06/05/22 06/05/22 19:19 06:21 07:43 POC Glucose 108 96 Total Bilirubin 0.5 Direct Bilirubin 0.2 AST 37 H ALT 24 Alkaline Phosphatase 77 Total Protein 5.6 L Albumin 3.4 L Carcinoembryonic Ag Microbiology Microbiology Results: Microbiology 06/02/22 12:16 Blood Culture - Preliminary Blood - Venous No growth after 48 hours. 06/02/22 12:16 Blood Culture - Preliminary Blood - Venous No growth after 48 hours. 06/02/22 16:45 Urine Culture - Final Urine clean catch - Clean Catch Midstream Assessment and Plan (1) Dilated pancreatic duct: Status: Acute (2) Dilated bile duct: Status: Acute (3) Pancreatic mass: Status: Acute (4) Compression fracture of thoracic vertebra: Status: Acute Plan 86-year-old female with past medical history of hypertension presents to the hospital with complaints of back pain found to have acute cholecystitis as well as a pancreatic mass # Cholethiasis No evidence of acute cholecystitis, elevated LFT Likely a result from pancreatic mass DC IV antibiotics Surgery recommended no intervention as the abnormality on images likely a result of distortion from pancreatic mass # Pancreatic lesion Causing distortion of the bile duct and abnormal looking gallbladder Surgery input appreciated, endoscopic ultrasound with FNA would be the preferred biopsy method of a pancreatic mass GI evaluation, EGD, needs EUS at [facility], will try to arrange in\outpatient by dr Morley plan for EGD today tolerating diet # compression fractures Questionable possible metastatic disease Pain management, physical therapy evaluation and SNF placement # HTN Take herself of medications Blood pressure fairly controlled Monitor the need of blood pressure meds # Constipation Enema Miralax DVT ppx Heparin subq Patient will need overnight hospital stay for evaluation of pancreatic mass and possible need of transfer to tertiary medical center. Quality Stroke Does the patient have a stroke diagnosis?: No VTE Prior VTE?: No VTE Risk Level:: Medical - moderate - high VTE Device Contraindication: Treatment Not Indicated VTE Drug Contraindication: N/A - Med Ordered
[2022-06-05 11:18] LABS: Glucose, Whole Blood 92 mg/dL (60-115)
--- NOTE | 2022-06-05 15:35 | HO.ANESPROP2 ---
HPI - Anesthesia Eval Consult details Narrative: 86 F for EGD pancreatic mass As per the patient declining any blood products at this time but is open to alternatives . PMF Active Problems Active Problems: All Active Problems (Updated 06/04/22 @ 16:21 by Melodie Morley MD) Dilated pancreatic duct (Acute) Dilated bile duct (Acute) Pancreatic mass (Acute) Constipation (Acute) Compression fracture of thoracic vertebra (Acute) Past Medical History Medical History (Updated 06/04/22 @ 16:21 by Melodie Morley MD) Gastric lymphoma Hypertension Family History Family History Other No history of cancer Family history of problems with anesthesia: No Surgical History Surgical History No pertinent past surgical history History of Problems with Anesthesia: No Social History Social History Household Members: None Housing: House Do you presently have visiting nurse or other home services: Yes (meals on wheels) Alcohol intake: never Patient Tobacco Use Status: Never used Tobacco e-Cigarette/Vaping Use: Never Used Advance Directives Date on File: 06/03/22 service: No Current occupational status: retired Meds Allergies Allergy/AdvReac Type Severity Reaction Status Date / Time proline [Proline] Allergy Mild REJECTION Verified 06/02/22 21:22 OF SUTURE amitriptyline [Amitriptyline] AdvReac Mild LETHARGY Verified 06/02/22 21:22 naproxen [Naproxen] AdvReac Mild ABDOMINAL Verified 06/02/22 21:22 PAIN trazodone [Trazodone] AdvReac Mild LETHARGY Verified 06/02/22 21:22 Active Medications: Current Medications Acetaminophen (Acetaminophen 325 Mg Tablet) 650 mg PO Q6H PRN PRN Reason: Pain, Mild (Pain Scale 1-3) Acetaminophen (Acetaminophen 325 Mg Tablet) 975 mg PO QSHIFT [facility] Last Admin: 06/05/22 09:06 Dose: 975 mg Docusate Sodium (Docusate Sodium 100 Mg Capsule) 100 mg PO DAILY PRN PRN Reason: Constipation Last Admin: 06/03/22 17:05 Dose: 100 mg Heparin Sodium (Porcine) (Heparin Sodium,Porcine 5,000 Unit/Ml Vial) 5,000 unit SUBCUT Q12H [facility] Last Admin: 06/04/22 10:40 Dose: 5,000 unit Ibuprofen (Ibuprofen 400 Mg Tablet) 400 mg PO BIDWM [facility] Last Admin: 06/05/22 09:08 Dose: Not Given Lactulose (Lactulose 20 Gm/30 Ml Solution) 20 gm PO BID [facility] Last Admin: 06/05/22 11:57 Dose: Not Given Lidocaine (Lidocaine 4 % Patch Adh..Patch) 1 patch TRANSDERMA DAILY [facility]; Protocol Last Admin: 06/05/22 09:11 Dose: Not Given Omeprazole (Omeprazole 20 Mg Capsule.Dr) 20 mg PO DAILY@0630 [facility] Last Admin: 06/05/22 05:44 Dose: 20 mg Ondansetron HCl (Ondansetron Hcl 4 Mg/2 Ml Vial) 4 mg IVPUSH Q8H PRN PRN Reason: Nausea and Vomiting Oxycodone HCl (Oxycodone Hcl Immed Release 5 Mg Tablet) 5 mg PO Q4H PRN PRN Reason: Pain, Severe (Pain Scale 7-10) Pharmacy Consult (Consult Rx Perform Med Rec) 1 each MISCELLANE ONCE PRN PRN Reason: Consult order Sodium Chloride (0.9 % Sodium Chloride Flush 3 Ml Syringe) 3 ml IVFLUSH QSHIFT [facility] Last Admin: 06/05/22 09:05 Dose: 3 ml Home Medications Medication Instructions Recorded Confirmed Last Taken Type acetaminophen 325 mg tablet 650 mg PO Q6H PRN Back Pain 06/03/22 06/03/22 06/02/22 History (Tylenol) cholecalciferol (vitamin D3) 25 25 mcg PO Q OTHER DAY 06/03/22 06/03/22 05/27/22 History mcg (1,000 unit) tablet (Vitamin D3) ibuprofen 200 mg tablet 400 mg PO Q8H PRN Back Pain 06/03/22 06/03/22 06/02/22 History Exam Exam Date and Time: June 05, 2022 1535 Height,Weight and Vital Signs: Height 5 ft 1 in Weight 40.823 kg Last Vital Signs Temp 98.6 F 06/05/22 15:23 Pulse 109 H 06/05/22 15:23 Resp 16 06/05/22 15:23 BP 156/97 H 06/05/22 15:23 Pulse Ox 98 06/05/22 15:23 O2 Del Method 06/05/22 15:23 Pertinent Lab Results Pertinent Lab Results: Laboratory Tests 06/02/22 06/02/22 06/02/22 11:26 12:16 12:16 WBC 8.6 RBC 4.43 Hgb 13.6 Hct 41.6 MCV 93.9 MCH 30.7 MCHC 32.7 RDW 13.6 Plt Count 203 MPV 9.5 Immature Gran % (Auto) 0.5 H Neut % (Auto) 77.8 H Lymph % (Auto) 12.7 L Jewell % (Auto) 7.7 Eos % (Auto) 0.8 Baso % (Auto) 0.5 Lymph # (Auto) 1.1 L [place] # (Auto) 0.7 Eos # (Auto) 0.1 Baso # (Auto) 0.0 Abs Immat Gran (auto) 0.04 H Absolute Neuts (auto) 6.7 Absolute Nucleated RBC 0.000 Nucleated RBC % (auto) 0.0 Sodium Potassium Chloride Carbon Dioxide Anion Gap BUN Creatinine Estim Creat Clear Calc Estimated GFR POC Glucose Random Glucose Lactic Acid 1.0 Calcium Magnesium Total Bilirubin Direct Bilirubin AST ALT Alkaline Phosphatase Troponin I High Sens Total Protein Albumin Lipase Carcinoembryonic Ag Urine Color Urine Appearance Urine pH Ur Specific [place] Urine Protein Urine Glucose (UA) Urine Ketones Urine Blood Urine Nitrite Ur Leukocyte Esterase Urine RBC Urine WBC Ur Squamous Epith Cells Urine Bacteria Hyaline Casts COVID-19 (TOMER) Negative COVID-19 Clin Com See Note 06/02/22 06/02/22 06/02/22 12:16 15:17 16:27 WBC RBC Hgb Hct MCV MCH MCHC RDW Plt Count MPV Immature Gran % (Auto) Neut % (Auto) Lymph % (Auto) Jewell % (Auto) Eos % (Auto) Baso % (Auto) Lymph # (Auto) Jewell # (Auto) Eos # (Auto) Baso # (Auto) Abs Immat Gran (auto) Absolute Neuts (auto) Absolute Nucleated RBC Nucleated RBC % (auto) Sodium 142 Potassium 3.9 Chloride 108 Carbon Dioxide 23 Anion Gap 15 BUN 11 Creatinine 0.61 Estim Creat Clear Calc 43.4 Estimated GFR > 60 POC Glucose Random Glucose 74 Lactic Acid Calcium 8.9 Magnesium 1.6 Total Bilirubin 0.8 Direct Bilirubin AST 27 ALT 19 Alkaline Phosphatase 67 Troponin I High Sens 7.2 Total Protein 6.0 L Albumin 3.6 Lipase 11 Carcinoembryonic Ag Urine Color Yellow Urine Appearance Clear Urine pH 5.0 Ur Specific [place] 1.015 Urine Protein Negative Urine Glucose (UA) Negative Urine Ketones 15 Urine Blood Small (1+) H Urine Nitrite Negative Ur Leukocyte Esterase Moderate (2+) H Urine RBC 3-5 H Urine WBC 6-10 Ur Squamous Epith Cells 3-5 Urine Bacteria None Seen Hyaline Casts 0-2 COVID-19 (TOMER) COVID-19 Clin Com 06/03/22 06/03/22 06/03/22 06:04 06:04 17:57 WBC 10.7 RBC 3.90 L Hgb 12.1 Hct 38.1 MCV 97.7 MCH 31.0 MCHC 31.8 RDW 14.3 Plt Count 211 MPV 10.1 Immature Gran % (Auto) 0.5 H Neut % (Auto) 77.1 H Lymph % (Auto) 14.0 L Jewell % (Auto) 7.5 Eos % (Auto) 0.4 Baso % (Auto) 0.5 Lymph # (Auto) 1.5 Jewell # (Auto) 0.8 Eos # (Auto) 0.0 Baso # (Auto) 0.1 Abs Immat Gran (auto) 0.05 H Absolute Neuts (auto) 8.2 Absolute Nucleated RBC 0.000 Nucleated RBC % (auto) 0.0 Sodium 143 Potassium 4.0 Chloride 106 Carbon Dioxide 17 L Anion Gap 24 H BUN 16 Creatinine 0.70 Estim Creat Clear Calc 37.8 Estimated GFR > 60 POC Glucose 114 Random Glucose 57 L* Lactic Acid Calcium 9.1 Magnesium Total Bilirubin Direct Bilirubin AST ALT Alkaline Phosphatase Troponin I High Sens Total Protein Albumin Lipase Carcinoembryonic Ag Urine Color Urine Appearance Urine pH Ur Specific [place] Urine Protein Urine Glucose (UA) Urine Ketones Urine Blood Urine Nitrite Ur Leukocyte Esterase Urine RBC Urine WBC Ur Squamous Epith Cells Urine Bacteria Hyaline Casts COVID-19 (TOMER) COVID-19 Clin Com 06/03/22 06/04/22 06/04/22 22:37 05:49 05:49 WBC RBC Hgb Hct MCV MCH MCHC RDW Plt Count MPV Immature Gran % (Auto) Neut % (Auto) Lymph % (Auto) Jewell % (Auto) Eos % (Auto) Baso % (Auto) Lymph # (Auto) Jewell # (Auto) Eos # (Auto) Baso # (Auto) Abs Immat Gran (auto) Absolute Neuts (auto) Absolute Nucleated RBC Nucleated RBC % (auto) Sodium 139 Potassium 4.4 Chloride 105 Carbon Dioxide 27 Anion Gap 11 L BUN 18 H Creatinine 0.65 Estim Creat Clear Calc 40.7 Estimated GFR > 60 POC Glucose 110 Random Glucose 88 Lactic Acid Calcium 8.9 Magnesium Total Bilirubin 0.4 Direct Bilirubin < 0.2 AST 24 ALT 17 Alkaline Phosphatase 68 Troponin I High Sens Total Protein 5.3 L Albumin 3.2 L Lipase Carcinoembryonic Ag Urine Color Urine Appearance Urine pH Ur Specific [place] Urine Protein Urine Glucose (UA) Urine Ketones Urine Blood Urine Nitrite Ur Leukocyte Esterase Urine RBC Urine WBC Ur Squamous Epith Cells Urine Bacteria Hyaline Casts COVID-19 ([facility]OM[facility]) COVID-19 [place] 06/04/22 06/04/22 06/04/22 07:58 11:08 15:40 WBC RBC Hgb Hct MCV MCH MCHC RDW Plt Count MPV Immature Gran % (Auto) Neut % (Auto) Lymph % (Auto) Jewell % (Auto) Eos % (Auto) Baso % (Auto) Lymph # (Auto) Jewell # (Auto) Eos # (Auto) Baso # (Auto) Abs Immat Gran (auto) Absolute Neuts (auto) Absolute Nucleated RBC Nucleated RBC % (auto) Sodium Potassium Chloride Carbon Dioxide Anion Gap BUN Creatinine Estim Creat Clear Calc Estimated GFR POC Glucose 99 107 125 H Random Glucose Lactic Acid Calcium Magnesium Total Bilirubin Direct Bilirubin AST ALT Alkaline Phosphatase Troponin I High Sens Total Protein Albumin Lipase Carcinoembryonic Ag Urine Color Urine Appearance Urine pH Ur Specific [place] Urine Protein Urine Glucose (UA) Urine Ketones Urine Blood Urine Nitrite Ur Leukocyte Esterase Urine RBC Urine WBC Ur Squamous Epith Cells Urine Bacteria Hyaline Casts COVID-19 (TOMER) COVID-19 [place] 06/04/22 06/04/22 06/05/22 16:14 19:19 06:21 WBC RBC Hgb Hct MCV MCH MCHC RDW Plt Count MPV Immature Gran % (Auto) Neut % (Auto) Lymph % (Auto) Jewell % (Auto) Eos % (Auto) Baso % (Auto) Lymph # (Auto) Jewell # (Auto) Eos # (Auto) Baso # (Auto) Abs Immat Gran (auto) Absolute Neuts (auto) Absolute Nucleated RBC Nucleated RBC % (auto) Sodium Potassium Chloride Carbon Dioxide Anion Gap BUN Creatinine Estim Creat Clear Calc Estimated GFR POC Glucose 108 Random Glucose Lactic Acid Calcium Magnesium Total Bilirubin 0.5 Direct Bilirubin 0.2 AST 37 H ALT 24 Alkaline Phosphatase 77 Troponin I High Sens Total Protein 5.6 L Albumin 3.4 L Lipase Carcinoembryonic Ag 2.40 Urine Color Urine Appearance Urine pH Ur Specific [place] Urine Protein Urine Glucose (UA) Urine Ketones Urine Blood Urine Nitrite Ur Leukocyte Esterase Urine RBC Urine WBC Ur Squamous Epith Cells Urine Bacteria Hyaline Casts COVID-19 ([facility]OM[facility]) COVID-19 Clin Com 06/05/22 06/05/22 07:43 11:14 WBC RBC Hgb Hct MCV MCH MCHC RDW Plt Count MPV Immature Gran % (Auto) Neut % (Auto) Lymph % (Auto) Jewell % (Auto) Eos % (Auto) Baso % (Auto) Lymph # (Auto) Jewell # (Auto) Eos # (Auto) Baso # (Auto) Abs Immat Gran (auto) Absolute Neuts (auto) Absolute Nucleated RBC Nucleated RBC % (auto) Sodium Potassium Chloride Carbon Dioxide Anion Gap BUN Creatinine Estim Creat Clear Calc Estimated GFR POC Glucose 96 92 Random Glucose Lactic Acid Calcium Magnesium Total Bilirubin Direct Bilirubin AST ALT Alkaline Phosphatase Troponin I High Sens Total Protein Albumin Lipase Carcinoembryonic Ag Urine Color Urine Appearance Urine pH Ur Specific [place] Urine Protein Urine Glucose (UA) Urine Ketones Urine Blood Urine Nitrite Ur Leukocyte Esterase Urine RBC Urine WBC Ur Squamous Epith Cells Urine Bacteria Hyaline Casts COVID-19 (TOMER) COVID-19 Clin Com Airway Mallampati Class: III TM Dist: <=3cm Neck ROM: Full Loose/Missing/Broken Teeth: Yes (Chipped front tooth . Narrow mouth opening ) Assessment and Plan Assessment Anesthesia Assessment: Anesthesia Plan Discussed and Chart Reviewed Final Anesthetic Review Family History of Problems with Anesthesia: No History of Problems with Anesthesia: No NPO: Yes ASA Class: IV and Emergency Final Preanesthetic Review: Meds/Allgs Chart Reviewed, Consent Obtained/Reviewed and Anes Risks/Benef Reviewed Patient Risk: High Procedure Risk: Intermediate Anesthetic Plan Anesthetic Plan: MAC: Disposition: Inp. Admit - Standard Bed
--- NOTE | 2022-06-05 15:51 | MHC.SHP ---
Pre-Procedural Eval Section A Date of Service: 06/05/22 The History & Physical has been completed within 30 days and I have reviewed it.: Yes Section B Chief Complaint: Acute cholecystitis, Pancreatic mass Allergies: Allergies Allergy/AdvReac Type Severity Reaction Status Date / Time proline [Proline] Allergy Mild REJECTION Verified 06/02/22 21:22 OF SUTURE amitriptyline [Amitriptyline] AdvReac Mild LETHARGY Verified 06/02/22 21:22 naproxen [Naproxen] AdvReac Mild ABDOMINAL Verified 06/02/22 21:22 PAIN trazodone [Trazodone] AdvReac Mild LETHARGY Verified 06/02/22 21:22 Plan Diagnosis/Plan: Unchanged I have reviewed the history and physical and performed a pertinent physical examination on my patient. No changes have occurred unless specified.
--- NOTE | 2022-06-05 15:58 | P.OP_ITS ---
Operative Note Operative Note Date of Service: 06/05/22 Narrative: Procedure: Esophagogastroduodenoscopy Endoscopist: Melodie Morley MD Indication: Thickened gastric wall Anesthesia Provider: Abigail Mcfadden CRNA Anesthesia Type: MAC Instrument: GIF-[id number] ?? EGD Procedure:?? The procedure, indications, preparation and potential complications were reviewed with the patient, who indicated understanding and gave written informed consent to proceed. A physical exam was performed. The endoscope was introduced through the mouth, and advanced to the second part of duodenum. The mucosa was carefully examined on slow withdrawal of the endoscope. The patient tolerated the procedure well. There were no immediate complications.? ? EGD Findings:? * Esophagus:?Normal esophageal mucosa. Small hiatal hernia was noted. * Stomach:? A clean based ulcer was noted near the pylorus. Cold forceps biopsies were taken from the edge of the ulcer. Thickened lumpy bumpy mucosa was noted in the antrum along the greater curvature, 3-4 cm from the pylorus. Cold forceps biopsies were taken. This led to significant bleeding. Hemospray was applied for bleeding control. * Duodenum:? Normal mucosa was noted in the whole of the examined duodenum. ? EGD Impressions:? * Small hiatal hernia * Thickened gastric mucosa (biopsy) (hemospray) * Gastric ulcer (biopsy) * Normal duodenum (biopsy) ?? Recommendations:?? 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 * Keep NPO overnight. * Please monitor for bleeding. H/H BID. * Maintain x2 IV access at all time. * Start pantoprazole IV gtt * NSAIDs discontinued * If pt demonstrates rebleeding, kindly alert GI service brittany. * Follow path results Above has been reviewed with the patient and son Trevin.
--- NOTE | 2022-06-05 15:58 | W.PM.OPN ---
Operative Note Operative Note Date of Service: 06/05/22 Narrative: Procedure: Esophagogastroduodenoscopy Endoscopist: Melodie Morley MD Indication: Thickened gastric wall Anesthesia Provider: Abigail Mcfadden CRNA Anesthesia Type: MAC Instrument: GIF-[id number] ?? EGD Procedure:?? The procedure, indications, preparation and potential complications were reviewed with the patient, who indicated understanding and gave written informed consent to proceed. A physical exam was performed. The endoscope was introduced through the mouth, and advanced to the second part of duodenum. The mucosa was carefully examined on slow withdrawal of the endoscope. The patient tolerated the procedure well. There were no immediate complications.? ? EGD Findings:? Esophagus:?Normal esophageal mucosa. Small hiatal hernia was noted. Stomach:? A clean based ulcer was noted near the pylorus. Cold forceps biopsies were taken from the edge of the ulcer. Thickened lumpy bumpy mucosa was noted in the antrum along the greater curvature, 3-4 cm from the pylorus. Cold forceps biopsies were taken. This led to significant bleeding. Hemospray was applied for bleeding control. Duodenum:? Normal mucosa was noted in the whole of the examined duodenum. ? EGD Impressions:? Small hiatal hernia Thickened gastric mucosa (biopsy) (hemospray) Gastric ulcer (biopsy) Normal duodenum (biopsy) ?? Recommendations:?? 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 Keep NPO overnight. Please monitor for bleeding. H/H BID. Maintain x2 IV access at all time. Start pantoprazole IV gtt NSAIDs discontinued If pt demonstrates rebleeding, kindly alert GI service brittany. Follow path results Above has been reviewed with the patient and son Trevin.
[2022-06-05 18:34] LABS: Glucose, Whole Blood 91 mg/dL (60-115)
[2022-06-05] MEDS: Lactulose 20 GM/30 ML SOLUTION PO (21:41)
[2022-06-06] MEDS: Acetaminophen 325 MG TABLET 975 MG PO ×4 (00:02→23:40)
[2022-06-06 03:22] VITALS: BP 114/59; PULSE 110; RESP 14; TEMP 36.9; O2SAT 93
[2022-06-06] MEDS: Omeprazole 20 MG CAPSULE.DR PO (06:34)
[2022-06-06 07:15] VITALS: BP 138/67; PULSE 94; RESP 16; TEMP 36.7; O2SAT 96
[2022-06-06 07:29] LABS: Glucose, Whole Blood 92 mg/dL (60-115)
[2022-06-06 07:57] LABS: Hematocrit 32.4 % (37.0-47.0); Hemoglobin 10.8 g/dl (12.0-16.0); Mean Corpuscular HGB Conc 33.3 g/dl (31.0-35.0); Mean Corpuscular Volume 95.9 fL (80.0-98.0); Mean Platelet Volume 9.4 fL (9.4-12.3); Platelet Count 230 X10*3/uL (160-400); Red Blood Count 3.38 X10*6/uL (4.20-5.50); Red Cell Distribution Width 14.3 % (11.0-16.0); White Blood Count 12.3 X10*3/uL (4.8-10.8)
--- NOTE | 2022-06-06 08:06 | HO.POSTANES ---
Post Anesthesia Evaluation Post Anesthesia Evaluation Vital Signs: Vital Signs Temp Pulse Resp BP Pulse Ox O2 Del Method 06/06/22 07:15 98.0 F 94 16 138/67 96 Room Air 06/06/22 03:22 98.5 F 110 H 14 114/59 L 93 Room Air 06/05/22 23:58 98.7 F 100 16 159/70 H 94 Room Air Anesthesia: Monitored Mental Status: Awake Pain Control: Satisfactory Nausea/Vomiting: None Hydration: Adequate Anesthesia-Related Issues: No Anes. Related Issues
[2022-06-06 08:40] LABS: Anion Gap 14 (12-20); Blood Urea Nitrogen 17 mg/dL (9-16); Calcium 8.7 mg/dL (8.4-10.2); Carbon Dioxide 27 mmol/L (22-29); Chloride 105 mmol/L (96-108); Creatinine Clr Calc Pharmacy 39.5; Estimated Glomerular Filt Rate > 60; Glucose Random 90 mg/dL (60-115); Potassium 4.1 mmol/L (3.3-5.1); Sodium 142 mmol/L (135-145)
[2022-06-06] MEDS: Lactulose 20 GM/30 ML SOLUTION PO ×2 (09:56→21:17)
[2022-06-06] MEDS: 0.9 % Sodium Chloride Flush 3 ML SYRINGE IVFLUSH ×3 (09:57→21:17)
[2022-06-06 10:12] LABS: Carbohydrate Antigen 19-9 4 U/mL (<34)
--- NOTE | 2022-06-06 11:07 | MHC.CLN ---
NUTRITION PATIENT CURRENTLY NPO. PRIOR DIET=REGULAR. DISLIKES ENSURE SUPPLEMENT AND DOES NOT WANT. FOLLOW FOR DIET ADVANCEMENT AND INTAKE.
[2022-06-06 11:49] LABS: Glucose, Whole Blood 95 mg/dL (60-115)
--- NOTE | 2022-06-06 11:49 | HO.PM.IMPN ---
Subjective Subjective Date of Service: 06/06/22 Interval History: cc: back pain interval history: somewhat better Cardiovascular Cardiovascular: Reports no additional cardiovascular complaints Respiratory Respiratory: Reports no additional respiratory complaints Physical Exam Vital Signs: Vital Signs: Last Vital Signs Temp 98.0 F 06/06/22 07:15 Pulse 94 06/06/22 07:15 Resp 16 06/06/22 07:15 BP 138/67 06/06/22 07:15 Pulse Ox 96 06/06/22 07:15 O2 Del Method 06/06/22 07:15 O2 Flow Rate 2 06/05/22 17:02 BMI result Body Mass Index 16.9 General: AO X 3, no acute distress Resp: CTA bilateral, no accessory muscles used CVS: S1,S2,RRR GI: soft, non tender, non distended Neuro: motor grossly intact, alert Psych: appropriate affect, appropriate insight Objective Data Active Medications Acetaminophen (Acetaminophen 325 Mg Tablet) 650 mg PO Q6H PRN PRN Reason: Pain, Mild (Pain Scale 1-3) Acetaminophen (Acetaminophen 325 Mg Tablet) 975 mg PO QSHIFT [facility] Last Admin: 06/06/22 09:56 Dose: 975 mg Documented By: NOAH Docusate Sodium (Docusate Sodium 100 Mg Capsule) 100 mg PO DAILY PRN PRN Reason: Constipation Last Admin: 06/03/22 17:05 Dose: 100 mg Documented By: REX Heparin Sodium (Porcine) (Heparin Sodium,Porcine 5,000 Unit/Ml Vial) 5,000 unit SUBCUT Q12H [facility] Last Admin: 06/04/22 10:40 Dose: 5,000 unit Documented By: FERMIN Ibuprofen (Ibuprofen 400 Mg Tablet) 400 mg PO BIDWM [facility] Last Admin: 06/05/22 09:08 Dose: Not Given Documented By: NOAH Non-Admin Reason: Patient Refused Lactulose (Lactulose 20 Gm/30 Ml Solution) 20 gm PO BID [facility] Last Admin: 06/06/22 09:56 Dose: 20 gm Documented By: NOAH Lidocaine (Lidocaine 4 % Patch Adh..Patch) 1 patch TRANSDERMA DAILY [facility]; Protocol Last Admin: 06/06/22 09:58 Dose: Not Given Documented By: NOAH Non-Admin Reason: Patient Refused Omeprazole (Omeprazole 20 Mg Edy.) 20 mg PO DAILY@0630 [facility] Last Admin: 06/06/22 06:34 Dose: 20 mg Documented By: JOSEF Ondansetron HCl (Ondansetron Hcl 4 Mg/2 Ml Vial) 4 mg IVPUSH Q8H PRN PRN Reason: Nausea and Vomiting Oxycodone HCl (Oxycodone Hcl Immed Release 5 Mg Tablet) 5 mg PO Q4H PRN PRN Reason: Pain, Severe (Pain Scale 7-10) Pharmacy Consult (Consult Rx Perform Med Rec) 1 each MISCELLANE ONCE PRN PRN Reason: Consult order Sodium Chloride (0.9 % Sodium Chloride Flush 3 Ml Syringe) 3 ml IVFLUSH QSHIFT [facility] Last Admin: 06/06/22 09:57 Dose: 3 ml Documented By: NOAH Labs CBC & Chem 7: 06/06/22 07:46 06/06/22 07:46 Labs: Laboratory Results - last 24 hr 06/04/22 06/05/22 06/06/22 16:14 18:16 07:13 MCV MCH MCHC RDW Plt Count MPV Absolute Nucleated RBC Nucleated RBC % (auto) Anion Gap Estim Creat Clear Calc Estimated GFR POC Glucose 91 92 Random Glucose Calcium CA 19-9 Antigen 4 06/06/22 06/06/22 06/06/22 07:46 07:46 11:42 MCV 95.9 MCH 32.0 MCHC 33.3 RDW 14.3 Plt Count 230 MPV 9.4 Absolute Nucleated RBC 0.000 Nucleated RBC % (auto) 0.0 Anion Gap 14 Estim Creat Clear Calc 39.5 Estimated GFR > 60 POC Glucose 95 Random Glucose 90 Calcium 8.7 CA 19-9 Antigen Assessment and Plan (1) Dilated pancreatic duct: Status: Acute (2) Dilated bile duct: Status: Acute (3) Pancreatic mass: Status: Acute (4) Compression fracture of thoracic vertebra: Status: Acute Plan 86-year-old female with past medical history of hypertension presents to the hospital with complaints of back pain found to have acute cholecystitis as well as a pancreatic mass Cholethiasis No evidence of acute cholecystitis, elevated LFT Likely a result from pancreatic mass DC IV antibiotics Surgery recommended no intervention as the abnormality on images likely a result of distortion from pancreatic mass Pancreatic cystic lesion Causing distortion of the bile duct and abnormal looking gallbladder Surgery input appreciated, endoscopic ultrasound with FNA would be the preferred biopsy method of a pancreatic mass 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, undwerent biopsy with bleeding, will need outpatient EUS at [facility] advancing to clears, monitor h and h compression fractures Questionable possible metastatic disease Pain management, physical therapy evaluation and SNF placement HTN Take herself of medications Blood pressure fairly controlled Monitor the need of blood pressure meds Constipation Enema Miralax DVT ppx Heparin subq reason for continued hospitalization:concern for bleed post biopsy Quality Stroke Does the patient have a stroke diagnosis?: No VTE Prior VTE?: No VTE Risk Level:: Medical - moderate - high VTE Device Contraindication: Treatment Not Indicated VTE Drug Contraindication: N/A - Med Ordered
[2022-06-06 12:00] VITALS: BP 149/74; PULSE 90; RESP 17; TEMP 36.7; O2SAT 95
[2022-06-06 13:37] LABS: Hemoglobin 10.8 g/dl (12.0-16.0)
--- NOTE | 2022-06-06 15:03 | MHC.CM.PN ---
Patient received EGD w spec collection. No dc todat. High risk for bleed s/p procedure. DP home resume MOW. Family will provide assit and transport home.
--- NOTE | 2022-06-06 15:37 | P.PNGI_ITS ---
Subjective Subjective Date of Service: 06/06/22 Critical Care Time (minutes): 0 Comment: s/p egd on 06/05 with abnormal gastric mucosa s/p cold forceps biopsy compli cated by bleeding which was controlled with hemospray. Reports back pain as before. No abd pain, nausea, vomiting, black stools. Physical Exam Vital Signs: Vital Signs: Last Vital Signs Temp 98.0 F 06/07/22 07:32 Pulse 83 06/07/22 07:32 Resp 18 06/07/22 07:32 BP 149/70 H 06/07/22 07:32 Pulse Ox 96 06/07/22 07:32 O2 Del Method 06/07/22 07:32 O2 Flow Rate 2 06/05/22 17:02 BMI result Body Mass Index 16.9 Gen appear: Frail appearing Abd: soft, nontender, nondistended Objective Data Labs CBC & Chem 7: 06/07/22 05:12 06/07/22 05:12 Labs: Laboratory Results - last 24 hr 06/04/22 06/06/22 06/06/22 16:14 07:46 11:42 WBC RBC Hgb Hct MCV MCH MCHC RDW Plt Count MPV Absolute Nucleated RBC Nucleated RBC % (auto) Sodium 142 Potassium 4.1 Chloride 105 Carbon Dioxide 27 Anion Gap 14 BUN 17 H Creatinine 0.67 Estim Creat Clear Calc 39.5 Estimated GFR > 60 POC Glucose 95 Random Glucose 90 Fasting Glucose Calcium 8.7 CA 19-9 Antigen 4 06/06/22 06/06/22 06/06/22 13:28 15:27 19:25 WBC RBC Hgb 10.8 L Hct 33.0 L MCV MCH MCHC RDW Plt Count MPV Absolute Nucleated RBC Nucleated RBC % (auto) Sodium Potassium Chloride Carbon Dioxide Anion Gap BUN Creatinine Estim Creat Clear Calc Estimated GFR POC Glucose 123 H 126 H Random Glucose Fasting Glucose Calcium CA 19-9 Antigen 06/07/22 06/07/22 06/07/22 05:12 05:12 07:31 WBC 8.7 RBC 3.21 L Hgb 9.9 L Hct 30.8 L MCV 96.0 MCH 30.8 MCHC 32.1 RDW 14.4 Plt Count 246 MPV 9.8 Absolute Nucleated RBC 0.000 Nucleated RBC % (auto) 0.0 Sodium 141 Potassium 3.6 Chloride 105 Carbon Dioxide 27 Anion Gap 13 BUN 15 Creatinine 0.59 Estim Creat Clear Calc 44.9 Estimated GFR > 60 POC Glucose 98 Random Glucose Fasting Glucose 92 Calcium 8.7 CA 19-9 Antigen Microbiology Microbiology Results: Microbiology 06/02/22 12:16 Blood - Venous Blood Culture - Preliminary No growth after 48 hours. 06/02/22 12:16 Blood - Venous Blood Culture - Preliminary No growth after 48 hours. 06/02/22 16:45 Urine clean catch - Clean Catch Midstream Urine Culture - Final Procedures Date of Service Date of Service: 06/06/22 Progress Note: A&P Assessment and plan (1) Pancreatic mass: Status: Acute (2) Dilated bile duct: Status: Acute (3) Dilated pancreatic duct: Status: Acute (4) Mucosal abnormality of stomach: Status: Acute Plan Please see EGD note for details. Path pending. No evidence of recurrence of bleeding. H/H dropped from yesterday but has remained stable through the day today. Diet can be advanced PPI can be switched to PO Referral to [facility] for EUS has been placed. Time Spent With Patient Time: Total time spent is greater than 50% in coordination of care (as documented) at patient's floor/unit and/or counseling patient: Quality Stroke Does the patient have a stroke diagnosis?: No VTE Prior VTE?: No VTE Risk Level:: Medical - moderate - high VTE Device Contraindication: Treatment Not Indicated VTE Drug Contraindication: N/A - Med Ordered
[2022-06-06] MEDS: oxyCODONE HCl Immed Release 5 MG TABLET PO (15:44)
[2022-06-06 16:03] LABS: Glucose, Whole Blood 123 mg/dL (60-115)
[2022-06-06 16:17] VITALS: BP 144/67; PULSE 87; RESP 17; TEMP 36.7; O2SAT 98
[2022-06-06 19:20] VITALS: BP 122/58; PULSE 94; RESP 18; TEMP 36.7; O2SAT 97
[2022-06-06 19:36] LABS: Glucose, Whole Blood 126 mg/dL (60-115)
[2022-06-06 23:10] VITALS: BP 137/65; PULSE 92; RESP 18; TEMP 36.8; O2SAT 96
[2022-06-07 03:57] VITALS: BP 147/70; PULSE 92; RESP 18; TEMP 36.4; O2SAT 96
[2022-06-07] MEDS: Omeprazole 20 MG CAPSULE.DR PO (05:43)
[2022-06-07 05:54] LABS: Hematocrit 30.8 % (37.0-47.0); Hemoglobin 9.9 g/dl (12.0-16.0); Mean Corpuscular HGB Conc 32.1 g/dl (31.0-35.0); Mean Corpuscular Hemoglobin 30.8 pg (27.0-33.0); Mean Platelet Volume 9.8 fL (9.4-12.3); Platelet Count 246 X10*3/uL (160-400); Red Blood Count 3.21 X10*6/uL (4.20-5.50); Red Cell Distribution Width 14.4 % (11.0-16.0); White Blood Count 8.7 X10*3/uL (4.8-10.8)
[2022-06-07 06:07] LABS: Anion Gap 13 (12-20); Blood Urea Nitrogen 15 mg/dL (9-16); Calcium 8.7 mg/dL (8.4-10.2); Carbon Dioxide 27 mmol/L (22-29); Chloride 105 mmol/L (96-108); Creatinine Clr Calc Pharmacy 44.9; Estimated Glomerular Filt Rate > 60; Glucose Fasting 92 mg/dL (60-99); Potassium 3.6 mmol/L (3.3-5.1); Sodium 141 mmol/L (135-145)
[2022-06-07 07:32] VITALS: BP 149/70; PULSE 83; RESP 18; TEMP 36.7; O2SAT 96
[2022-06-07 07:46] LABS: Glucose, Whole Blood 98 mg/dL (60-115)
[2022-06-07] MEDS: Acetaminophen 325 MG TABLET 975 MG PO ×3 (08:09→23:33)
[2022-06-07] MEDS: Lactulose 20 GM/30 ML SOLUTION PO ×2 (08:09→20:29)
[2022-06-07] MEDS: 0.9 % Sodium Chloride Flush 3 ML SYRINGE IVFLUSH ×3 (08:11→23:35)
--- NOTE | 2022-06-07 09:18 | P.PNIM_ITS ---
Subjective Subjective Date of Service: 06/07/22 Interval History: cc: back pain interval history: somewhat better Cardiovascular Cardiovascular: Reports no additional cardiovascular complaints Respiratory Respiratory: Reports no additional respiratory complaints Physical Exam Vital Signs: Vital Signs: Last Vital Signs Temp 98.0 F 06/07/22 07:32 Pulse 83 06/07/22 07:32 Resp 18 06/07/22 07:32 BP 149/70 H 06/07/22 07:32 Pulse Ox 96 06/07/22 07:32 O2 Del Method 06/07/22 07:32 O2 Flow Rate 2 06/05/22 17:02 BMI result Body Mass Index 16.9 General: AO X 3, no acute distress Resp: CTA bilateral, no accessory muscles used CVS: S1,S2,RRR GI: soft, non tender, non distended Neuro: motor grossly intact, alert Psych: appropriate affect, appropriate insight Objective Data Active Medications Acetaminophen (Acetaminophen 325 Mg Tablet) 650 mg PO Q6H PRN PRN Reason: Pain, Mild (Pain Scale 1-3) Acetaminophen (Acetaminophen 325 Mg Tablet) 975 mg PO QSHIFT [facility] Last Admin: 06/07/22 08:09 Dose: 975 mg Documented By: FERMIN Docusate Sodium (Docusate Sodium 100 Mg Capsule) 100 mg PO DAILY PRN PRN Reason: Constipation Last Admin: 06/03/22 17:05 Dose: 100 mg Documented By: REX Heparin Sodium (Porcine) (Heparin Sodium,Porcine 5,000 Unit/Ml Vial) 5,000 unit SUBCUT Q12H [facility] Last Admin: 06/04/22 10:40 Dose: 5,000 unit Documented By: FERMIN Ibuprofen (Ibuprofen 400 Mg Tablet) 400 mg PO BIDWM [facility] Last Admin: 06/05/22 09:08 Dose: Not Given Documented By: NOAH Non-Admin Reason: Patient Refused Lactulose (Lactulose 20 Gm/30 Ml Solution) 20 gm PO BID [facility] Last Admin: 06/07/22 08:09 Dose: 20 gm Documented By: FERMIN Lidocaine (Lidocaine 4 % Patch Adh..Patch) 1 patch TRANSDERMA DAILY [facility]; Protocol Last Admin: 06/07/22 08:11 Dose: Not Given Documented By: FERMIN Non-Admin Reason: Patient Refused Omeprazole (Omeprazole 20 Mg Capsule.) 20 mg PO DAILY@0630 [facility] Last Admin: 06/07/22 05:43 Dose: 20 mg Documented By: JOSHUA Ondansetron HCl (Ondansetron Hcl 4 Mg/2 Ml Vial) 4 mg IVPUSH Q8H PRN PRN Reason: Nausea and Vomiting Oxycodone HCl (Oxycodone Hcl Immed Release 5 Mg Tablet) 5 mg PO Q4H PRN PRN Reason: Pain, Severe (Pain Scale 7-10) Last Admin: 06/06/22 15:44 Dose: 5 mg Documented By: NOAH Pharmacy Consult (Consult Rx Perform Med Rec) 1 each MISCELLANE ONCE PRN PRN Reason: Consult order Sodium Chloride (0.9 % Sodium Chloride Flush 3 Ml Syringe) 3 ml IVFLUSH [facility] Last Admin: 06/07/22 08:11 Dose: 3 ml Documented By: FERMIN Labs CBC & Chem 7: 06/07/22 05:12 06/07/22 05:12 Labs: Laboratory Results - last 24 hr 06/04/22 06/06/22 06/06/22 16:14 11:42 15:27 MCV MCH MCHC RDW Plt Count MPV Absolute Nucleated RBC Nucleated RBC % (auto) Anion Gap Estim Creat Clear Calc Estimated GFR POC Glucose 95 123 H Fasting Glucose Calcium CA 19-9 Antigen 4 06/06/22 06/07/22 06/07/22 19:25 05:12 05:12 MCV 96.0 MCH 30.8 MCHC 32.1 RDW 14.4 Plt Count 246 MPV 9.8 Absolute Nucleated RBC 0.000 Nucleated RBC % (auto) 0.0 Anion Gap 13 Estim Creat Clear Calc 44.9 Estimated GFR > 60 POC Glucose 126 H Fasting Glucose 92 Calcium 8.7 CA 19-9 Antigen 06/07/22 07:31 MCV MCH MCHC RDW Plt Count MPV Absolute Nucleated RBC Nucleated RBC % (auto) Anion Gap Estim Creat Clear Calc Estimated GFR POC Glucose 98 Fasting Glucose Calcium CA 19-9 Antigen Assessment and Plan (1) Dilated pancreatic duct: Status: Acute (2) Dilated bile duct: Status: Acute (3) Pancreatic mass: Status: Acute (4) Compression fracture of thoracic vertebra: Status: Acute Plan 86-year-old female with past medical history of hypertension presents to the hospital with complaints of back pain found to have acute cholecystitis as well as a pancreatic mass Cholethiasis No evidence of acute cholecystitis, elevated LFT Likely a result from pancreatic mass DCed IV antibiotics Surgery recommended no intervention as the abnormality on images likely a result of distortion from pancreatic mass Pancreatic cystic lesion Causing distortion of the bile duct and abnormal looking gallbladder Surgery input appreciated, endoscopic ultrasound with FNA would be the preferred biopsy method of a pancreatic mass 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, undwerent biopsy with bleeding, will need outpatient EUS at [facility] advancing to solids, monitor h and h, no evidence of bleeding compression fractures Questionable possible metastatic disease Pain management, physical therapy evaluation and SNF placement if cannot tolerate ambulation may need kyphoplasty Constipation Enema Miralax DVT ppx Heparin subq reason for continued hospitalization:concern for bleed post biopsy, difficulty ambulating due to back pain Quality Stroke Does the patient have a stroke diagnosis?: No VTE Prior VTE?: No VTE Risk Level:: Medical - moderate - high VTE Device Contraindication: Treatment Not Indicated VTE Drug Contraindication: N/A - Med Ordered
[2022-06-07 11:13] VITALS: BP 149/70; PULSE 86; RESP 18; TEMP 36.8; O2SAT 97
[2022-06-07 11:36] LABS: Glucose, Whole Blood 108 mg/dL (60-115)
[2022-06-07 16:00] VITALS: BP 143/65; PULSE 77; RESP 18; TEMP 37.1; O2SAT 99
[2022-06-07 19:50] VITALS: BP 117/52; PULSE 125; RESP 18; TEMP 36.4; O2SAT 95
[2022-06-07 23:33] VITALS: BP 125/63; PULSE 86; RESP 16; TEMP 36.2; O2SAT 93
[2022-06-08 03:03] VITALS: BP 144/67; PULSE 78; RESP 16; TEMP 36.1; O2SAT 96
[2022-06-08 05:50] LABS: Hematocrit 31.7 % (37.0-47.0); Hemoglobin 10.1 g/dl (12.0-16.0); Mean Corpuscular HGB Conc 31.9 g/dl (31.0-35.0); Mean Corpuscular Hemoglobin 30.9 pg (27.0-33.0); Mean Corpuscular Volume 96.9 fL (80.0-98.0); Mean Platelet Volume 9.8 fL (9.4-12.3); Platelet Count 265 X10*3/uL (160-400); Red Blood Count 3.27 X10*6/uL (4.20-5.50); Red Cell Distribution Width 14.6 % (11.0-16.0); White Blood Count 9.4 X10*3/uL (4.8-10.8)
[2022-06-08 06:16] LABS: Anion Gap 14 (12-20); Blood Urea Nitrogen 19 mg/dL (9-16); Calcium 9.2 mg/dL (8.4-10.2); Carbon Dioxide 27 mmol/L (22-29); Chloride 106 mmol/L (96-108); Creatinine Clr Calc Pharmacy 40.1; Estimated Glomerular Filt Rate > 60; Glucose Fasting 97 mg/dL (60-99); Potassium 4.7 mmol/L (3.3-5.1); Sodium 142 mmol/L (135-145)
[2022-06-08] MEDS: Omeprazole 20 MG CAPSULE.DR PO (06:16)
[2022-06-08] MEDS: Acetaminophen 325 MG TABLET 975 MG PO ×2 (07:38→14:55)
[2022-06-08] MEDS: Lactulose 20 GM/30 ML SOLUTION PO (07:39)
[2022-06-08] MEDS: 0.9 % Sodium Chloride Flush 3 ML SYRINGE IVFLUSH (07:39)
[2022-06-08] MEDS: Lidocaine 4 % Patch ADH..PATCH 1 PATCH TRANSDERMA (07:39)
[2022-06-08 07:55] VITALS: BP 172/77; PULSE 84; RESP 15; TEMP 37.3; O2SAT 97
--- NOTE | 2022-06-08 09:27 | HO.PM.IMPN ---
Subjective Subjective Date of Service: 06/08/22 Interval History: cc: back pain interval history: somewhat better Cardiovascular Cardiovascular: Reports no additional cardiovascular complaints Respiratory Respiratory: Reports no additional respiratory complaints Physical Exam Vital Signs: Vital Signs: Last Vital Signs Temp 99.1 F 06/08/22 07:55 Pulse 84 06/08/22 07:55 Resp 15 06/08/22 07:55 BP 172/77 H 06/08/22 07:55 Pulse Ox 97 06/08/22 07:55 O2 Del Method 06/08/22 07:55 O2 Flow Rate 2 06/05/22 17:02 BMI result Body Mass Index 16.9 General: AO X 3, no acute distress Resp: CTA bilateral, no accessory muscles used CVS: S1,S2,RRR GI: soft, non tender, non distended Neuro: motor grossly intact, alert Psych: appropriate affect, appropriate insight Objective Data Active Medications Acetaminophen (Acetaminophen 325 Mg Tablet) 650 mg PO Q6H PRN PRN Reason: Pain, Mild (Pain Scale 1-3) Acetaminophen (Acetaminophen 325 Mg Tablet) 975 mg PO QSHIFT COUNTS [facility]CLUDE 234 BEDS AT THE [facility] Last Admin: 06/08/22 07:38 Dose: 975 mg Documented By: ALFRED Docusate Sodium (Docusate Sodium 100 Mg Capsule) 100 mg PO DAILY PRN PRN Reason: Constipation Last Admin: 06/03/22 17:05 Dose: 100 mg Documented By: REX Heparin Sodium (Porcine) (Heparin Sodium,Porcine 5,000 Unit/Ml Vial) 5,000 unit SUBCUT Q12H COUNTS INCLUDE 234 BEDS AT THE [facility] Last Admin: 06/04/22 10:40 Dose: 5,000 unit Documented By: FERMIN Ibuprofen (Ibuprofen 400 Mg Tablet) 400 mg PO BIDWM COUNTS INCLUDE 234 BEDS AT THE [facility] Last Admin: 06/05/22 09:08 Dose: Not Given Documented By: NOAH Non-Admin Reason: Patient Refused Lactulose (Lactulose 20 Gm/30 Ml Solution) 20 gm PO BID COUNTS INCLUDE 234 BEDS AT THE [facility] Last Admin: 06/08/22 07:39 Dose: 20 gm Documented By: ALFRED Lidocaine (Lidocaine 4 % Patch Adh..Patch) 1 patch TRANSDERMA DAILY COUNTS INCLUDE 234 BEDS AT THE [facility]; Protocol Last Admin: 06/08/22 07:39 Dose: 1 patch Documented By: ALFRED Omeprazole (Omeprazole 20 Mg Capsule.) 20 mg PO DAILY@0630 COUNTS INCLUDE 234 BEDS AT THE [facility] Last Admin: 06/08/22 06:16 Dose: 20 mg Documented By: ALEKSEY-SCHLM Ondansetron HCl (Ondansetron Hcl 4 Mg/2 Ml Vial) 4 mg IVPUSH Q8H PRN PRN Reason: Nausea and Vomiting Oxycodone HCl (Oxycodone Hcl Immed Release 5 Mg Tablet) 5 mg PO Q4H PRN PRN Reason: Pain, Severe (Pain Scale 7-10) Last Admin: 06/06/22 15:44 Dose: 5 mg Documented By: NOAH Pharmacy Consult (Consult Rx Perform Med Rec) 1 each MISCELLANE ONCE PRN PRN Reason: Consult order Sodium Chloride (0.9 % Sodium Chloride Flush 3 Ml Syringe) 3 ml IVFLUSH QSHIFT COUNTS INCLUDE 234 BEDS AT THE [facility] Last Admin: 06/08/22 07:39 Dose: 3 ml Documented By: ALFRED Labs CBC & Chem 7: 06/08/22 05:07 06/08/22 05:07 Labs: Laboratory Results - last 24 hr 06/07/22 06/08/22 06/08/22 11:11 05:07 05:07 MCV 96.9 MCH 30.9 MCHC 31.9 RDW 14.6 Plt Count 265 MPV 9.8 Absolute Nucleated RBC 0.000 Nucleated RBC % (auto) 0.0 Anion Gap 14 Estim Creat Clear Calc 40.1 Estimated GFR > 60 POC Glucose 108 Fasting Glucose 97 Calcium 9.2 Microbiology Microbiology Results: Microbiology 06/02/22 12:16 Blood Culture - Final Blood - Venous No growth after 5 days. 06/02/22 12:16 Blood Culture - Final Blood - Venous No growth after 5 days. Assessment and Plan (1) Dilated pancreatic duct: Status: Acute (2) Dilated bile duct: Status: Acute (3) Pancreatic mass: Status: Acute (4) Compression fracture of thoracic vertebra: Status: Acute Plan 86-year-old female with past medical history of hypertension presents to the hospital with complaints of back pain found to have acute cholecystitis as well as a pancreatic mass Cholethiasis No evidence of acute cholecystitis, elevated LFT Likely a result from pancreatic mass DCed IV antibiotics Surgery recommended no intervention as the abnormality on images likely a result of distortion from pancreatic mass Pancreatic cystic lesion Causing distortion of the bile duct and abnormal looking gallbladder Surgery input appreciated, endoscopic ultrasound with FNA would be the preferred biopsy method of a pancreatic mass 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, undwerent biopsy with bleeding, will need outpatient EUS at [facility] advancing to solids, monitor h and h, no evidence of bleeding compression fractures Questionable possible metastatic disease Pain management, physical therapy evaluation and SNF placement if cannot tolerate ambulation may need kyphoplasty, will consult with IR Constipation Enema Miralax DVT ppx Heparin subq reason for continued hospitalization:concern for bleed post biopsy, difficulty ambulating due to back pain Quality Stroke Does the patient have a stroke diagnosis?: No VTE Prior VTE?: No VTE Risk Level:: Medical - moderate - high VTE Device Contraindication: Treatment Not Indicated VTE Drug Contraindication: N/A - Med Ordered
[2022-06-08 11:35] VITALS: BP 136/63; PULSE 89; RESP 15; TEMP 37.6; O2SAT 97
--- NOTE | 2022-06-08 12:14 | P.DS_ITS ---
DS: Providers Provider Date of Service: 06/08/22 Date of admission: 06/02/22 21:24 Primary care physician: Jeffrey Cook MD Consults: 06/02/22 19:24 Consult to General Surgery Stat Consulting Provider: Liam Ho Reason for consultation: cholecystitis 06/02/22 21:20 Consult to Gastroenterology Routine Consulting Provider: Melodie Morley Reason for consultation: pancreatic mass Has provider been notified: No DS: Diagnosis Discharge Diagnosis (1) Dilated pancreatic duct: Status: Acute (2) Dilated bile duct: Status: Acute (3) Pancreatic mass: Status: Acute (4) Compression fracture of thoracic vertebra: Status: Acute DS: Summary Hospital Course Hospital Course: from initial hpi: Chief Complaint: back pain This is an 86-year-old female with past medical history of hypertension who took herself off of her antihypertensives sometime ago, not compliant with physician visits, last seen primary care provider many years ago presents to the hospital with complaints of back pain.? Of note patient was seen in the ED 2 weeks ago for same back pain.? Patient reports that the pain is in the lower back, on the left, then radiates to the right and and cyst in the right upper quadrant.? Patient reports that the pain is been going on for 2 weeks, she was given muscle relaxant, a Tylenol, as well as took ibuprofen with no relief of her pain.? Her pain became 10/10 therefore decided to come back to the hospital.? She reports that she initially did not feel significant pain in the right upper quadrant but when she was exam bed in the EMS, she then realize she has right upper quadrant pain. She denies any recent weight loss, reports no nausea vomiting, denies any diarrhea but has constipation, no urinary symptoms, no lower extremity edema, Labs are significant for positive UA otherwise unremarkable Abdomen pelvic CT shows mass at the body of the pancreas suspicious for neoplasm, cholelithiasis with distention of the gallbladder with edema of the wall concerning for acute cholecystitis, There is also compression fracture of T11 vertebral which appears acute Case was discussed with General surgery, wants patient to be evaluated for pancreatic neoplasm.? Will start patient on IV antibiotics with consult for GI hospital course: patient was admitted for back pain. She is found to have cholelithiasis which was originally concern for acute cholecystitis, though this is likely resolved mom pancreatic mass so antibiotics were discontinued. She was noted to have pancreatic cystic lesion, she will need to follow up at [facility] for EUS biopsy. 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 And remained stable. She was started on PPI, biopsy results should be followed up outpatient. Patient was also noted to have acute T11 fracture, she was able to manage reasonably well with physical therapy and pain control, she will be discharged to skilled nurse facility for further physical therapy, if no improvement can consider kyphoplasty as outpatient. Time Spent with Patient Time attestation: Total time spent providing and/or coordinating discharge services: Discharge coordination time: Greater than 30 minutes Quality: Safe Use of Opioids Does Pt have an Active Cancer Diagnosis on the Problem List?: No Quality: Stroke Does the patient have a stroke diagnosis?: No Physical Exam Vital Signs: Vital Signs: Last Vital Signs Temp 99.6 F 06/08/22 11:35 Pulse 89 06/08/22 11:35 Resp 15 06/08/22 11:35 BP 136/63 06/08/22 11:35 Pulse Ox 97 06/08/22 11:35 O2 Del Method 06/08/22 11:35 O2 Flow Rate 2 06/05/22 17:02 BMI result Body Mass Index 16.9 General: AO X 3, no acute distress Resp: CTA bilateral, no accessory muscles used CVS: S1,S2,RRR GI: soft, non tender, non distended Neuro: motor grossly intact, alert Psych: appropriate affect, appropriate insight DS: Data Data Completed and Pending Pending studies at discharge: Pending at discharge 06/05/22 16:29 Surgical [PTH] Routine Labs on day of discharge: Laboratory Results - last 24 hr 06/08/22 06/08/22 05:07 05:07 WBC 9.4 RBC 3.27 L Hgb 10.1 L Hct 31.7 L MCV 96.9 MCH 30.9 MCHC 31.9 RDW 14.6 Plt Count 265 MPV 9.8 Absolute Nucleated RBC 0.000 Nucleated RBC % (auto) 0.0 Sodium 142 Potassium 4.7 D Chloride 106 Carbon Dioxide 27 Anion Gap 14 BUN 19 H Creatinine 0.66 Estim Creat Clear Calc 40.1 Estimated GFR > 60 Fasting Glucose 97 Calcium 9.2 Discharge Plan Discharge Anticipated Discharge Date/Time: 06/08/22 12:12 Patient Disposition: Xfer SNF Discharge Diagnosis: pnacreatic mass, t11 fracture Referrals: Jeffrey Cook MD [Primary Care Provider] - 1 Week Melodie Morley MD [Physician] - 1 Week Discharge Medications: New omeprazole 20 mg Capsule,Delayed Release(Dr/Ec) 20 mg PO DAILY@0630 Qty: 0 0RF Continued acetaminophen [Tylenol] 325 mg Tablet 650 mg PO Q6H PRN (Reason: Back Pain) ibuprofen 200 mg Tablet 400 mg PO Q8H PRN (Reason: Back Pain) cholecalciferol (vitamin D3) [Vitamin D3] 25 mcg (1,000 unit) Tablet 25 mcg PO Q OTHER DAY Discharge Orders: Discharge Order (Routine); Ordered 06/08/22 Ordered By: Wilmer Pedersen Diet: Advance to usual diet Activity on Discharge: As tolerated Stand Alone Forms: Patient Portal Discharge page Care Plan Goals: recovery Health Concerns: t11 fracture and pancreatic mass Plan of Treatment: PT, follow up with [facility] for EUS Assessment: see above
--- NOTE | 2022-06-08 13:00 | MHC.CM.PN ---
Addendum entered by Angie Brown 06/08/22 16:07: IMM DELIVERED Original Note: DP: PT MEDICALLY CLEARED FOR DC TO [facility]. PT/FAMILY AWARE. RN AWARE. BLS TRANSPORT BOOKED FOR 3:30 PM WITH [facility]
[2022-06-08 13:21] LABS: COVID-19 Test Negative (Negative)
== END 2022-06-08 17:00 | disposition skilled nursing facility (03) | DRG 841 ==
LOC: HO.ED 19:32 → HO.EDOVER 21:50 → HO.S3 06-03 14:02
PROVIDERS: Internal Medicine; Nurse Practitioner Family; Student in an Organized Health Care Education/Training Program; Admitting Provider Internal Medicine; Emergency Provider Emergency Medicine Emergency Medical Services; PCP Internal Medicine; Visit Provider Internal Medicine
PROC: 0DJ08ZZ Inspection of Upper Intestinal Tract, Via Natural or Artificial Opening Endoscopic (ICD-10-PCS; CPT 43235; principal; 2022-06-05 15:30)
DX: C85.99 Non-Hodgkin lymphoma, unspecified, extranodal and solid organ sites (principal); C25.0 Malignant neoplasm of head of pancreas; N39.0 Urinary tract infection, site not specified; C79.51 Secondary malignant neoplasm of bone; M84.58XA Pathological fracture in neoplastic disease, other specified site, initial encounter for fracture; K80.20 Calculus of gallbladder without cholecystitis without obstruction; I10 Essential (primary) hypertension; K59.00 Constipation, unspecified; R33.9 Retention of urine, unspecified; T46.5X6A Underdosing of other antihypertensive drugs, initial encounter; Z91.128 Patient's intentional underdosing of medication regimen for other reason; Z91.199 Patient's noncompliance with other medical treatment and regimen due to unspecified reason; Z20.822 Contact with and (suspected) exposure to COVID-19; Z88.6 Allergy status to analgesic agent; Z88.8 Allergy status to other drugs, medicaments and biological substances; Z79.899 Other long term (current) drug therapy
CPT/HCPCS: 36415; 74177; 74183; 80048; 80053; 80076; 81001; 82378; 82947; 83605; 83690; 83735; 84484; 85014; 85018; 85025; 85027; 86301; 87040; 87086; 87635; 88305; 88313; 88342; 93005; 97110; 97162; 97530; 99285; A9585; J0696; J2270; J2405; Q9967

== ENCOUNTER 2024-07-16 17:43 | Emergency (ER) | payer MEDICARE, SELFPAY ==
--- NOTE | ~2024-07-16 | CT_ITS ---
CLINICAL HISTORY: fall. CT CERVICAL SPINE WITHOUT CONTRAST Comparison: None Findings: Exaggerated lordosis. Minimal grade 1 retrolisthesis C4 on C5, likely degenerative. Moderately severe narrowing of the C4-5 disc space. [id number]-[id number] narrowing in the remaining disc levels. Moderate to moderately severe facet degenerative changes, left greater than right. No acute fractures or dislocations. Please see separate report for CT head/brain. 14 mm hypodense right thyroid nodule is nonspecific. No acute abnormalities in the lung apices. IMPRESSION: No acute fracture in the cervical spine. This document has been electronically signed by: Valerie Marti DO on 07/16/2024 20:50:11
--- NOTE | ~2024-07-16 | CT_ITS ---
CLINICAL HISTORY: headache. fall CT HEAD WITHOUT CONTRAST Comparison: None Findings: No acute intracranial hemorrhage, extra-axial fluid collection, hydrocephalus or midline shift. Age appropriate generalized parenchymal atrophy. There are periventricular and subcortical white matter hypodensities which are nonspecific but most likely related to microangiopathic gliosis. Intracranial arteriosclerosis. There is no sinus or mastoid fluid. Visualized orbits: No acute abnormalities. Bilateral aphakia There is no acute fracture. IMPRESSION: 1. No acute intracranial hemorrhage. This document has been electronically signed by: Valerie Marti DO on 07/16/2024 20:53:01
[2024-07-16 17:55] VITALS: BP 159/85; PULSE 111; RESP 18; TEMP 36.6; O2SAT 97; BMI 18.0
--- NOTE | 2024-07-16 18:01 | ED.GENADULT ---
HPI - General Adult General Chief complaint: Fall Stated complaint: fall - hit head Time Seen by Provider: 07/16/24 22:57 Source: patient, RN notes reviewed and old records reviewed Mode of arrival: ambulatory Limitations: no limitations History of Present Illness ED Provider: Augustine CRUZ narrative: 89-year-old female presents for evaluation after a fall. The patient presents with her son whom she lives with. The patient fell last night while attempting to get off the toilet. She fell backwards and hit her head on the tile. She had no loss of consciousness, she is not anticoagulated She reportedly had a small scrape. The patient denies any kind of pain, headache, neck pain. She denies any joint pain The patient's son was interested in having an occupational therapy evaluation to help improve the safety of the patient's living situation. He called elder Services to see if they to be able to help and also called the patient's primary doctor, both places referred the patient to the ED for evaluation after her fall last night 1st. The patient's last fall before today was about 1 year ago Related Data Home Medications ?Medication ?Instructions ?Recorded ?Confirmed acetaminophen 325 mg tablet 650 mg PO Q6H PRN Back Pain 06/03/22 06/03/22 (Tylenol) cholecalciferol (vitamin D3) 25 25 mcg PO Q OTHER DAY 06/03/22 06/03/22 mcg (1,000 unit) tablet (Vitamin D3) ibuprofen 200 mg tablet 400 mg PO Q8H PRN Back Pain 06/03/22 06/03/22 Previous Rx's ?Medication ?Instructions ?Recorded omeprazole 20 mg capsule,delayed 20 mg PO DAILY@0630 #0 caps 06/08/22 release Allergies Allergy/AdvReac Type Severity Reaction Status Date / Time proline [Proline] Allergy Mild REJECTION Verified 07/16/24 17:58 OF SUTURE amitriptyline [Amitriptyline] AdvReac Mild LETHARGY Verified 07/16/24 17:58 naproxen [Naproxen] AdvReac Mild ABDOMINAL Verified 07/16/24 17:58 PAIN trazodone [Trazodone] AdvReac Mild LETHARGY Verified 07/16/24 17:58 Review of Systems Constitutional: Constitutional: Denies body ache(s), Denies chills, Denies fever(s), Denies frequent falls and Denies headache(s) ENT: Denies headache(s) Cardiovascular: Cardiovascular: Denies syncope and Denies dyspnea Respiratory: Respiratory: Denies cough and Denies dyspnea Gastrointestinal: Gastrointestinal: Denies abdominal pain, Denies nausea and Denies vomiting Musculoskeletal: Musculoskeletal: Denies back pain, Denies arthralgias, Denies joint swelling and Denies limited range of motion Integumentary/Breasts: Skin/Breast: Denies rash Neurologic: Denies syncope, Denies frequent falls and Denies headache(s) Psychiatric: Psychiatric: Denies anxiety PMFSH Past Medical History Medical History (Updated 07/17/24 @ 00:07 by Deric Bradshaw) Gastric lymphoma Hypertension Surgical History No pertinent past surgical history Family History Family History Other No history of cancer Social History Social History (Reviewed 06/03/22 @ 12:35 by Liam Ho MD, [facility], [facility]) Household Members: None Housing: House Do you presently have visiting nurse or other home services: Yes (meals on wheels) Alcohol intake: never Patient Tobacco Use Status: Never used Tobacco e-Cigarette/Vaping Use: Never Used Advance Directives: Yes Advance Directives Information Provided: No Advance Directives on File: No Advance Directives Date on File: 06/03/22 Do you have a plan to hurt others: No Plan service: No Current occupational status: retired Physical Exam ED Vital Signs: Vital Signs - 24 hr 07/16/24 17:55 07/16/24 23:34 07/17/24 00:16 Temperature 98 F 98.1 F 98.1 F Pulse Rate 111 H 94 94 Respiratory Rate 18 16 16 Blood Pressure 159/85 H 169/76 H 169/76 H Pulse Oximetry 97 99 99 Oxygen Delivery Method Room Air Room Air Room Air BMI result Body Mass Index 18.0 Const General: healthy appearing, comfortable, no acute distress, alert and awake Nutritional Appearance: well nourished Orientation/consciousness: patient oriented x3 HENMT Other: Small abrasion to the posterior scalp in the midline, no active bleeding Throat: Yes posterior oropharynx normal Eyes Eyelids: Yes eyelids normal Conjunctivae: conjunctivae normal Sclerae: sclerae normal Corneas: corneas normal Pupils: Equal, round and reactive pupils present EOM: EOMs intact bilaterally Neck Neck: Yes full ROM Resp Effort & Inspection: normal respiratory effort, able to speak in complete sentences and not labored Cardio Rate: regular rate Rhythm: regular rhythm GI Inspection: No distended Palpation (GI): Soft to palpation, not firm, nontender, no guarding and not rigid Skin General skin exam: no rashes or lesions noted and elasticity normal Neuro General: patient oriented x3 Cranial nerves: Yes CN's II-XII intact bilaterally, Yes Equal, round and reactive pupils present and Yes Bilaterally intact EOM present Cognition (Neuro): normal cognition Extrem Other: Moving all extremities well without any obvious deformities Course Course Course Narrative: RME: 89-year-old female presents to ED for evaluation due to fall yesterday. Patient slipped and fell and hit the back of the head yesterday. Patient has small abrasion. Patient is sent to the ED by primary care for evaluation. Imaging of head and neck ordered. Negative for any neuro deficits Medical Decision Making Medical Decision Making MDM Narrative: 89-year-old female presents for evaluation after a fall. The patient's son is fairly clear the patient is not actually here due to the fall but is here for a case management referral. Unfortunately about time I was able to see the patient case management had gone home for the night. The patient has no obvious injuries, CT scan of the brain and cervical spine were ordered in triage which did not show any evidence of injury. Message to the case management team and asked them to call the patient's son tomorrow to help assist them with the occupational therapy evaluation of the patient and he are looking for. Differential Diagnosis Differential Diagnoses: The differential diagnosis associated with the presentation includes Mechanical fall Abrasion Fall without injury Failure to thrive Radiology Impression Discussion of test interpretation with radiology: I have reviewed the radiologist's reading. Radiologist Impression: Findings: No acute intracranial hemorrhage, extra-axial fluid collection, hydrocephalus or midline shift. Age appropriate generalized parenchymal atrophy. There are periventricular and subcortical white matter hypodensities which are nonspecific but most likely related to microangiopathic gliosis. Intracranial arteriosclerosis. There is no sinus or mastoid fluid. Visualized orbits: No acute abnormalities. Bilateral aphakia There is no acute fracture. IMPRESSION: 1. No acute intracranial hemorrhage. This document has been electronically signed by: Valerie Marti DO on 07/16/2024 20:53:01 Findings: Exaggerated lordosis. Minimal grade 1 retrolisthesis C4 on C5, likely degenerative. Moderately severe narrowing of the C4-5 disc space. [id number]-[id number] narrowing in the remaining disc levels. Moderate to moderately severe facet degenerative changes, left greater than right. No acute fractures or dislocations. Please see separate report for CT head/brain. 14 mm hypodense right thyroid nodule is nonspecific. No acute abnormalities in the lung apices. IMPRESSION: No acute fracture in the cervical spine. This document has been electronically signed by: Valerie Marti DO on 07/16/2024 20:50:11 Discharge Plan Discharge Clinical Impression: Accident due to mechanical fall without injury Patient Disposition: Home, Self-Care Instructions: Fall Prevention for Older Adults (ED) Additional Instructions: I will try to have case management reach out to you to explain how to improve your living situation to reduce risk for further falls/injuries. Your CT scans today were reassuring without evidence of traumatic injury Prescriptions: No Action acetaminophen [Tylenol] 325 mg Tablet 650 mg PO Q6H PRN (Reason: Back Pain) ibuprofen 200 mg Tablet 400 mg PO Q8H PRN (Reason: Back Pain) cholecalciferol (vitamin D3) [Vitamin D3] 25 mcg (1,000 unit) Tablet 25 mcg PO Q OTHER DAY omeprazole 20 mg Capsule,Delayed Release(Dr/Ec) 20 mg PO DAILY@0630 Qty: 0 0RF Interventions: ED Discharge Assessment Last Done: 07/17/24 00:16 Discharge Date/Time: 07/17/24 00:17 Print Language: Setswana
[2024-07-16 23:34] VITALS: BP 169/76; PULSE 94; RESP 16; TEMP 36.7; O2SAT 99
[2024-07-17 00:16] VITALS: BP 169/76; PULSE 94; RESP 16; TEMP 36.7; O2SAT 99
--- NOTE | 2024-07-17 09:43 | MHC.CM.ED ---
Received case management consult overnight from Manolo ALEX. Patient came to the ER due to a fall. Work up essentially negative. Per Manolo ALEX, son spoke to PCP's office and [facility] and both recommended [facility] referral for OT. Spoke with son, Jose Carlos, via telephone at [phone]. Jose Carlos agreeable to referral to [facility] for physical therapy and occupational therapy. [facility] will start services on Saturday. Jose Carlos verbalized understanding.
== END 2024-07-17 00:17 | disposition home or self-care (01) ==
PROVIDERS: Emergency Provider Emergency Medicine; PCP Internal Medicine
DX: S09.90XA Unspecified injury of head, initial encounter (principal); R51.9 Headache, unspecified; M54.2 Cervicalgia; W18.12XA Fall from or off toilet with subsequent striking against object, initial encounter; Y93.89 Activity, other specified; Y92.002 Bathroom of unspecified non-institutional (private) residence as the place of occurrence of the external cause; Y99.8 Other external cause status
CPT/HCPCS: 70450; 72125; 99284

== ENCOUNTER → 2024-07-16 18:01 | Outpatient (BNV) | payer MEDICARE, SELFPAY | PROVIDERS: PCP Internal Medicine; Visit Provider Radiology Diagnostic Radiology | DX: S09.90XA Unspecified injury of head, initial encounter (principal); W01.10XA Fall on same level from slipping, tripping and stumbling with subsequent striking against unspecified object, initial encounter | CPT/HCPCS: 70450; 72125 ==